=== PATIENT | male | born 1980 | race Caucasian/White ===

== ENCOUNTER 2017-10-29 08:00 | Outpatient (CLI) | payer BC | END 2017-10-29 23:59 | disposition home or self-care (01) | LOC: LAB.R 08:00 | PROVIDERS: ATTEND Nurse Practitioner Family | DX: F90.0 Attention-deficit hyperactivity disorder, predominantly inattentive type (principal) | CPT/HCPCS: 80307; 80324; 80354; 80362; 81599 ==

== ENCOUNTER 2018-09-02 13:11 | Outpatient (CLI) | payer BC ==
[2018-09-02 19:13] LABS: ALBUMIN 4.7 g/dL (3.2-5.5); ALBUMIN/GLOBULIN RATIO 1.4 (1.0-2.2); BILIRUBIN,TOTAL 0.9 mg/dL (0.2-1.0); CALCIUM 9.4 mg/dL (8.5-10.3); CREATININE 0.8 mg/dL (0.6-1.2)
[2018-09-02 19:54] LABS: HB2 TOTAL 16.5 g/dL; HEMOGLOBIN A1C 0.67 g/dL; HEMOGLOBIN A1C % 5.9 % (4.6-6.2)
== END 2018-09-02 13:12 | disposition home or self-care (01) ==
LOC: LAB.F 13:11
PROVIDERS: ATTEND Nurse Practitioner Family
DX: E78.5 Hyperlipidemia, unspecified (principal); E55.9 Vitamin D deficiency, unspecified; I10 Essential (primary) hypertension
CPT/HCPCS: 36415; 80053; 82306; 83036; 83718; 83721; 84478

== ENCOUNTER 2022-08-23 11:03 | Outpatient (CLI) | payer OTHER | END 2022-08-23 11:04 | disposition critical access hospital (66) | LOC: EMS 11:03 | DX: R10.11 Right upper quadrant pain (principal); R10.811 Right upper quadrant abdominal tenderness; R11.0 Nausea; R19.7 Diarrhea, unspecified | CPT/HCPCS: A0425; A0427 ==

== ENCOUNTER 2022-08-23 11:36 | Inpatient (IN) | payer BC, OTHER ==
[2022-08-23] MEDS ORDERED: MORPHINE 2 MG/ML CARPUJECT IVP STA (11:58)
[2022-08-23] MEDS ORDERED: SODIUM CHLORIDE 0.9% 1,000 ML IV STA ×2 (11:58→14:49)
[2022-08-23 12:23] LABS: BASOPHILS # (AUTO) 0.1 10^3/uL (0.0-0.1); BASOPHILS % (AUTO) 0.7 %; EOSINOPHILS # (AUTO) 0.1 10^3/uL (0.0-0.7); EOSINOPHILS % (AUTO) 0.7 %; HCT - HEMATOCRIT 49.8 % (42.0-52.0); HGB - HEMOGLOBIN 15.1 g/dL (14.0-18.0); LYMPHOCYTES # (AUTO) 1.5 10^3/uL (1.5-3.5); MEAN CORPUSCULAR HEMOGLOBIN 27.2 pg (27.0-31.0); MEAN CORPUSCULAR HGB CONC 30.3 g/dL (32.0-36.0); MEAN CORPUSCULAR VOLUME 89.7 fL (80.0-94.0); MEAN PLATELET VOLUME 10.4 fL (7.4-11.4); MONOCYTES # (AUTO) 0.8 10^3/uL (0.0-1.0); MONOCYTES % (AUTO) 5.5 %; NEUTROPHILS % (AUTO) 82.1 %; PLT - PLATELET COUNT 265 10^3/uL (130-450); RED BLOOD COUNT 5.55 10^6/uL (4.70-6.10); RED CELL DISTRIBUTION WIDTH 13.2 % (12.0-15.0); WHITE BLOOD COUNT 14.6 x10^3/uL (4.8-10.8)
--- NOTE | 2022-08-23 12:29 | ED Physician Documentation ---
PD HPI ABD PAIN - Stated complaint Stated Complaint: RUQ PX - Chief complaint Chief Complaint: Abd Pain - History obtained from History obtained from: Patient - Additional information Additional information: Patient is a 41-year-old male with no significant past medical history presenting for evaluation of right upper quadrant pain that has been worsening since last night. Pain feels like a sharp pressure. It does radiate to the lower abdomen. Nothing makes it better or worse. He does report having some worsening indigestion for the past 2 days which she does have a history of. He denies chest pain or difficulty breathing. He did have some dry heaving today.He initially presented to the walk-in clinic and was given IM Toradol.He also received 50 mcg of fentanyl from EMS.He denies prior history of abdominal surgeries or procedures. Review of Systems Constitutional: denies: Fever Nose: denies: Congestion Cardiac: denies: Chest pain / pressure Respiratory: denies: Dyspnea GI: reports: Abdominal Pain, Nausea. denies: Diarrhea : denies: Dysuria Musculoskeletal: denies: Back pain Neurologic: denies: Headache PD PAST MEDICAL HISTORY - Allergies Allergies/Adverse Reactions: Allergies Allergy/AdvReac Type Severity Reaction Status Date / Time Penicillins Allergy Unknown Verified 08/23/22 11:59 PD ED PE NORMAL - General General: Alert and oriented X 3, No acute distress, Well developed/nourished - HEENT HEENT: Atraumatic - Neck Neck: Supple, no meningeal sign - Cardiac Cardiac: RRR, No murmur - Respiratory Respiratory: No respiratory distress, Clear bilaterally - Abdomen Abdomen: Normal bowel sounds, Soft, Non distended, Other (epigastric, Right upper and lower quadrant tenderness to palpation) - Derm Derm: Warm and dry - Neuro Neuro: Normal speech Results - Vitals Vitals: Vital Signs - 24 hr 08/23/22 08/23/22 08/23/22 11:52 13:59 16:13 Temperature 36.7 C Heart Rate 89 88 75 Respiratory 16 19 18 Rate Blood Pressure 120/85 H 127/82 H 117/69 O2 Saturation 98 100 97 Oxygen O2 Source Room air - Labs Labs: Laboratory Tests 08/23/22 08/23/22 08/23/22 12:20 13:17 13:17 WBC 14.6 H RBC 5.55 Hgb 15.1 Hct 49.8 MCV 89.7 MCH 27.2 MCHC 30.3 L RDW 13.2 Plt Count 265 MPV 10.4 Neut # (Auto) 12.0 H Lymph # (Auto) 1.5 [place] # (Auto) 0.8 Eos # (Auto) 0.1 Baso # (Auto) 0.1 Absolute Nucleated RBC 0.00 Nucleated RBC % 0.0 Sodium 134 L Potassium 4.3 Chloride 97 L Carbon Dioxide 28 Anion Gap 9.0 BUN 13 Creatinine 0.8 Estimated GFR (MDRD) 108 Glucose 219 H Calcium 9.3 Total Bilirubin 1.0 AST 293 H ALT 457 H Alkaline Phosphatase 131 H Total Protein 7.8 Albumin 4.5 Globulin 3.3 Albumin/Globulin Ratio 1.4 Triglycerides 1156 H Cholesterol 285 H LDL Cholesterol Direct 75 LDL Cholesterol, Calc Not Reportable VLDL Cholesterol Not Reportable HDL Cholesterol 24 L LDL/HDL Ratio Not Reportable dLDL/HDL Ratio 3.1 Cholesterol/HDL Ratio 11.9 Lipase > 4800 H SARS-CoV-2 (PCR) 08/23/22 16:15 WBC RBC Hgb Hct MCV MCH MCHC RDW Plt Count MPV Neut # (Auto) Lymph # (Auto) [place] # (Auto) Eos # (Auto) Baso # (Auto) Absolute Nucleated RBC Nucleated RBC % Sodium Potassium Chloride Carbon Dioxide Anion Gap BUN Creatinine Estimated GFR (MDRD) Glucose Calcium Total Bilirubin AST ALT Alkaline Phosphatase Total Protein Albumin Globulin Albumin/Globulin Ratio Triglycerides Cholesterol LDL Cholesterol Direct LDL Cholesterol, Calc VLDL Cholesterol HDL Cholesterol LDL/HDL Ratio dLDL/HDL Ratio Cholesterol/HDL Ratio Lipase SARS-CoV-2 (PCR) NOT DETECTED PD Medical Decision Making - ED course ED course: Patient presenting for evaluation of right-sided abdominal pain. His vital signs appear stable. He denies alcohol use. His labs are concerning for elevated lipase and LFTs. His ultrasound does not show cholecystitis.CT also confirms diagnosis of pancreatitis. Patient is requiring IV pain medication and fluids. Discussed the case with the hospitalist will admit for further ma nagement. I did add a lipid panel. Patient states that he has not had anything to eat or drink today because he was feeling unwell. It was notable for elevated triglycerides which may be the reason for his pancreatitis today. 1720 - Discussed with the hospitalist, Dr. Brown, Graciously agrees to admit the patient for further management. Departure - Departure Disposition: 66 [facility] DC/Xfer Clinical Impression: Abnormal liver enzymes, Fatty liver Acute pancreatitis Qualifiers: Pancreatitis type: other Acute pancreatitis complication: no infection or necrosis Qualified Code(s): K85.80 - Other acute pancreatitis without necrosis or infection
--- NOTE | 2022-08-23 13:40 | Ultrasound Report ---
PROCEDURE: Abdomen Limited INDICATIONS: RUQ TECHNIQUE: Real-time focused scanning was performed of the abdomen, with image documentation. COMPARISON: None FINDINGS: The liver is diffusely echogenic, consistent with probable diffuse hepatic steatosis. The liver is mildly enlarged, measuring 20.3 cm. There is an incidental 6 mm gallbladder polyp. Gallbladder is otherwise unremarkable without stones o r wall thickening. No dilated ducts. Common bile duct measures 5.2 mm, common hepatic duct measures 2.8 mm. Visualized portions of the pancreas are unremarkable. No right hydronephrosis. Right kidney measures 12.6 cm. IMPRESSION: Findings most likely represent diffuse hepatic steatosis. No evidence of gallstone disease. Reviewed by: Rafi Mix MD on 08/23/2022 1:39 PM PST Approved by: Rafi Mix MD on 08/23/2022 1:39 PM PST Station ID: [id number]
[2022-08-23] MEDS ORDERED: ONDANSETRON 4 MG/2 ML VIAL IVP STA (13:47)
[2022-08-23 14:08] LABS: ALBUMIN 4.5 g/dL (3.2-5.5); ALBUMIN/GLOBULIN RATIO 1.4 (1.0-2.2); ALKALINE PHOSPHATASE 131 IU/L (42-121); ALT ALANINE AMINOTRANSFERASE 457 IU/L (10-60); AST ASPARTATE AMINOTRANSFERASE 293 IU/L (10-42); BUN - BLOOD UREA NITROGEN 13 mg/dL (6-20); CALCIUM 9.3 mg/dL (8.5-10.3); CARBON DIOXIDE - CO2 28 mmol/L (21-32); CHLORIDE 97 mmol/L (101-111); CREATININE 0.8 mg/dL (0.6-1.2); GFR - MDRD 108 (>89); GLUCOSE 219 mg/dL (70-100); LIPASE > 4800 U/L (22-51); POTASSIUM 4.3 mmol/L (3.5-5.0); SODIUM 134 mmol/L (135-145); TOTAL PROTEIN 7.8 g/dL (6.7-8.2)
[2022-08-23] MEDS ORDERED: iohexoL-300 100 ML VIAL ONE (14:19)
[2022-08-23] MEDS ORDERED: HYDROmorphone 1 MG/ML CARPUJECT IVP STA ×3 (14:49→20:59)
[2022-08-23 15:35] LABS: CHOL/HDL RATIO 11.9 (<5.0); CHOLESTEROL 285 mg/dL; HDL CHOLESTEROL 24 mg/dL; TRIGLYCERIDES 1156 mg/dL
[2022-08-23 15:57] LABS: LDL CHOLESTEROL,DIRECT 75 mg/dL; LDLD/HDL RATIO 3.1 (<3.6)
--- NOTE | 2022-08-23 16:01 | CT Report ---
PROCEDURE: ABDOMEN/PELVIS W INDICATIONS: R sided abd pain CONTRAST: 100ml OMnipaque 300 TECHNIQUE: After the administration of IV contrast, 5 mm thick sections acquired from the diaphragms to the symp hysis. 5 mm thick coronal and sagittal reformats were acquired. For radiation dose reduction, the f ollowing was used: automated exposure control, adjustment of mA and/or kV according to patient size. COMPARISON: Ultrasound of abdomen from the same day. FINDINGS: Image quality: Excellent. ABDOMEN: Lung bases: Lung bases are clear. Heart size is normal. Solid organs: There is hepatomegaly and moderate hepatic steatosis, no discrete hepatic lesion is see n. Gallbladder contains a tiny stone in its dependent portion. No gallbladder wall thickening or aguilar cholecystic fluid is seen. Spleen is normal in size and enhancement. Biliary system is non dilated. Pancreas is enlarged in size with extensive peripancreatic fat stranding. No discrete pancreatic mass is noted. No discrete peripancreatic fluid collection is seen. No adrenal nodules. Kidneys demonstrate normal size and enhancement, without hydronephrosis. Peritoneum and bowel: Bowel loops demonstrate normal wall thickness and caliber. No free fluid or a ir. Appendix is visualized and is within normal limits. No abscess collection. Mild sigmoid diverticu losis is seen without CT evidence of acute diverticulitis. Nodes and vessels: No retroperitoneal or mesenteric adenopathy by size criteria. Aorta and inferior vena cava are normal in size. Miscellaneous: No ventral hernias. PELVIS: Genitourinary: Bladder wall thickness is normal. Miscellaneous: No inguinal hernias or adenopathy. Bones: No suspicious bony lesions. No vertebral body compression fractures. Mild degenerative disc disease at L3-4, L4-5 and L5-S1 levels are seen. IMPRESSION: 1. Finding is consistent with acute pancreatitis. No peripancreatic fluid collection. 2. Cholelithiasis without CT evidence of acute cholecystitis. No biliary ductal dilatation. 3. Hepatomegaly and hepatic steatosis. No discrete hepatic lesion. 4. Normal appendix. No bowel obstruction or abnormal bowel wall thickening. No free fluid of free air . Reviewed by: Pancho Zafar MD on 08/23/2022 3:59 PM PST Approved by: Pancho Zafar MD on 08/23/2022 3:59 PM PST Station ID: [id number]
[2022-08-23] MEDS ORDERED: iohexoL-300 100 ML VIAL IVP ONE (16:27)
[2022-08-23] MEDS ORDERED: MORPHINE 2 MG/ML CARPUJECT IVP PRN (17:45)
[2022-08-23] MEDS ORDERED: ONDANSETRON ODT 4 MG TABLET TL PRN (17:45)
--- NOTE | 2022-08-23 18:01 | HISTORY & PHYSICAL EXAMINATION ---
Chief Complaint - Chief Complaint Chief Complaint: abd pain History of Present Illness - Admitted From Admitted From:: home - History Obtained From Records Reviewed: [facility] History obtained from: patient and Dr. Sesay Exam Limitations: none - History of Present Illness HPI Comment/Other: He started having RUQ pain a couple of days ago and thought it was indigestion. Pain initially was epigastric, and then it started going into the right upper quadrant. It had started in the morning after eating a [employer] breakfast. He thought at first it was just a touch of indigestion. A friend was visiting from [facility] and they were being indiscrete by eating "bad food". Later on that evening, that same friend made a meal of a wagyu steak that was probably the fattiest thing he had ever eaten. Also accompanied by fois grois. The pain really intensified after that meal and he was miserable to the point that he felt like he was going to . He said this was the worst pain he has ever had in his life. Non radiating. Located in the epigastrium and right upper quadrant. It did not radiate to the back. After a while the feeling that he was going to explode slowly abated, but he then began feeling left upper quadrant discomfort. And now he feels discomfort in the left mid abdomen. No fever, no chills. No hx of alcohol abuse, no hx of cholesterol problems, no hx of galbladder problems. He was able to find some lab work for me from 2018. At that point his triglycerides were in the low 200s. Many years ago he had a girlfriend that was a recovering alcoholic. And in order to support her he decided not to drink anymore. He said he has not had a drink in over 6 years. He was so measurable with us that he got himself to the walk-in clinic in [place]. From there they called an ambulance and brought him to our emergency room. His temp was 36.7, HR 89, 120/85, resp 16, with 98% room air sats. Exam was antoine gn except for epigastric, RUQ pain to palpation w nml bowel sounds. Labs show AST 293, ALT 457, alk phos 131. TG are 1156, chold 285, lipase >4800. Glucose is 219 and he has no hx of DM. Ultrasound showed diffuse hepatic steatosis. No evidence of gallstone disease. Abdomen pelvis CT had clear lung bases. Hepatomegaly, moderate hepatic steatosis, and gallbladder had a tiny stone in its dependent portion. No gallbladder wall thickening or pericholecystic fluid seen. Spleen was normal. Biliary system was not dilated. Pancreas was large in size with extensive peripancreatic fat stranding. No discrete pancreatic mass noted. No peripancreatic fluid collection noted. The case was discussed with emergency room provider. We went over the differential diagnosis of what causes pancreatitis. We have already gone over the fact that he has no history of alcohol abuse, no history of gallstones. He does appear to have hyperlipidemia. ER provider is asking the patient be admitted for pancreatitis. History - Past Medical History Cardiovascular: reports: None Respiratory: reports: None Neuro: reports: None Endocrine/Autoimmune: reports: None GI: reports: None : reports: None HEENT: reports: Chronic vision loss (Wears glasses. Over the last couple of years vision has changed dramatically) Psych: reports: None Musculoskeletal: reports: None Derm: reports: None - Family & Social History Family History Comment/Other: Mom is alive. Still living in [place]. Has a history of diabetes. Dad is alive, lives in [facility]. Healthy. He has multiple half siblings between mom and dad. He has 1 full sister, but 8/2 siblings. No history of diabetes, cancer, heart attack, pancreatitis. 1 child is healthy Living arrangement: At home Living Situation: Alone Social History Notes: Born and raised in [place]. Then lived in [facility] for a while. In his professional life he has lived in [place], [place], and most recently [place]. 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 He does not smoke. Never did. Has not drank in 6 years to support his ex-girlfriend who still his best friend. Prior to that has no history of alcohol abuse. No history of recreational substance abuse. - Substance History Use: Uses substance without health or social issues: NONE Meds/Allgy - Allergies Allergies/Adverse Reactions: Allergies Allergy/AdvReac Type Severity Reaction Status Date / Time Penicillins Allergy Unknown Verified 08/23/22 11:59 Review of Systems - Constitutional Constitutional: denies: Fatigue, Fever, Chills, Malaise, Weakness, Poor appetite - Eyes Eyes: reports: Blurred vision, Vision loss. denies: Pain, Irritation, Amaurosis - Ears, Nose & Throat Ears, Nose & Throat: denies: Ear pain, Hearing loss, Hearing aids, Tinnitus, Vertigo, Nasal pain, Nasal discharge, Sore throat, Hoarseness - Cardiovascular Cariovascular: denies: Irregular heart rate, Palpitations, Chest pain, Edema, Exertional dyspnea, Decr. exercise tolerance - Respiratory Respiratory: denies: Cough, Sputum production, Wheezing, Snoring - Gastrointestinal Gastrointestinal: reports: Abdominal pain, Abdominal distention, Nausea, Reflux/heartburn, Bloating, Other (All of these been over the last 2 days. This pain started on Sunday. Today is Sunday.) - Genitourinary Genitourinary: denies: Dysuria, Frequency, Urgency, Hematuria, Incontinence - Musculoskeletal Musculoskeletal: denies: Muscle pain, Back pain, Muscle aches, Stiffness - Integumentary Integumentary: denies: Rash, Pruritis, Lesions, Dryness - Neurological Neurological: denies: General weakness, Focal weakness, Headache, Dizziness Prior Level of Functionality: Completely normal with activities of daily living. Drives a car. Pays bills. Completely self-sufficient. No use of durable medical equipment. Exam - Vital Signs Reviewed Vital Signs: Yes Vital Signs: Vital Signs x48h Temp Pulse Resp BP Pulse Ox 08/23/22 16:13 75 18 117/69 97 08/23/22 13:59 88 19 127/82 H 100 08/23/22 11:52 36.7 C 89 16 120/85 H 98 - Physical Exam General Appearance: positive: Alert, Mild distress, Other (He is 5 foot 11 inches tall, 117.9 kg) Eyes Bilateral: positive: PERRL, EOMI, No scleral icterus ENT: positive: No signs of dehydration Neck: positive: No JVD. negative: Stiff neck Respiratory: positive: No respiratory distress. negative: Wheezes, Rales, Rhonchi Cardiovascular: positive: Regular rate & rhythm Peripheral Pulses: positive: 1+ Abdomen: positive: Nml bowel sounds, Other (Slightly distended and bloated, tenderness that is mild in the epigastrium and right upper quadrant. Discomfort in the left mid abdomen and between the umbilicus and epigastrium. No rebound or guarding.) Skin: positive: Warm, Dry Extremities: positive: Full ROM, No pedal edema Neurologic/Psychiatric: positive: Oriented x3, CN's nml (2-12), Motor nml Conclusion/Plan - Problem List (1) Acute pancreatitis Conclusion/Plan: My suspicion is this gentleman has either hypertriglyceridemia as a cause of his pancreatitis or he passed a stone and had temporary common bile duct distention. There is no objective finding of that in that the biliary system is not dilated on CT or ultrasound. Yet he has history of severe pain after eating followed by an intense feeling of going to explode which slowly abated over time leads me to think about biliary colic. However, He appears to have chronic fatty liver. There is one gallstone but it is small, and in the gallbladder. H is liver enzymes are elevated And to his knowledge, no previous lab work showed elevation of liver enzymes. He has no history of alcohol abuse. Plan: Inpatient status Calculate [facility] criteria in 48 hours Supportive care with IV fluids, antiemetics, IV opioids Recheck fasting lipid panel for his triglycerides tomorrow Qualifiers: Pancreatitis type: other Acute pancreatitis complication: no infection or necrosis Qualified Code(s): K85.80 - Other acute pancreatitis without necrosis or infection (2) Hypertriglyceridemia Conclusion/Plan: Most likely familial, but he is morbidly obese at 5 foot 11 inches tall 117.9 kg. He may have a problem with his diet. Plan: N.p.o. except for ice chips Lipid panel tomorrow morning Consider [employer] once his lipid panel comes back (3) Abnormal liver enzymes Conclusion/Plan: Most likely due to fatty liver. Ultrasound shows no tumor. Differential diagnosis for elevated liver enzymes is extensive including acute hepatitis, Leo's disease, hemochromatosis, etc. Plan: For complete work-up of elevated liver enzymes, will complete serology work-up. Ultrasound already done. - Lab Results Lab results reviewed: Yes Fish Bones: 08/23/22 12:20 08/23/22 13:17 - Diagnostic Imaging Results Diagnostic Imaging Results: positive: Final report reviewed - EKG Results EKG Interpreted Independently: No Core Measures - Anticipated LOS I expect patient to be DC'd or transferred within 96 hours.: Yes - DVT/VTE - Prophylaxis VTE/DVT Prophylaxis med ordered at admit?: Yes
[2022-08-23] MEDS: ONDANSETRON 4 MG/2 ML VIAL IVP PRN (21:13)
[2022-08-23] MEDS: SODIUM CHLORIDE 0.9% 1,000 ML IV SCH (23:14)
[2022-08-24] MEDS: SODIUM CHLORIDE FLUSH 0.9% 10 ML SYRINGE IVP SCH ×3 (00:47→16:55)
[2022-08-24 05:16] LABS: BASOPHILS % (AUTO) 0.3 %; EOSINOPHILS % (AUTO) 0.2 %; HCT - HEMATOCRIT 44.2 % (42.0-52.0); HGB - HEMOGLOBIN 13.7 g/dL (14.0-18.0); LYMPHOCYTES # (AUTO) 1.6 10^3/uL (1.5-3.5); MEAN CORPUSCULAR HEMOGLOBIN 27.3 pg (27.0-31.0); MEAN PLATELET VOLUME 10.3 fL (7.4-11.4); MONOCYTES # (AUTO) 0.7 10^3/uL (0.0-1.0); MONOCYTES % (AUTO) 5.6 %; NEUTROPHILS # (AUTO) 9.8 10^3/uL (1.5-6.6); NEUTROPHILS % (AUTO) 80.2 %; PLT - PLATELET COUNT 254 10^3/uL (130-450); RED BLOOD COUNT 5.02 10^6/uL (4.70-6.10); RED CELL DISTRIBUTION WIDTH 13.5 % (12.0-15.0); WHITE BLOOD COUNT 12.3 x10^3/uL (4.8-10.8)
[2022-08-24 05:35] LABS: CHOL/HDL RATIO 9.3 (<5.0); CHOLESTEROL 176 mg/dL; HDL CHOLESTEROL 19 mg/dL; TRIGLYCERIDES 401 mg/dL
[2022-08-24 05:44] LABS: ALBUMIN 3.5 g/dL (3.2-5.5); ALBUMIN/GLOBULIN RATIO 1.1 (1.0-2.2); BILIRUBIN,TOTAL 0.9 mg/dL (0.2-1.0); CALCIUM 8.2 mg/dL (8.5-10.3); CREATININE 0.8 mg/dL (0.6-1.2); POTASSIUM 3.6 mmol/L (3.5-5.0); TOTAL PROTEIN 6.6 g/dL (6.7-8.2)
[2022-08-24 05:54] LABS: LDL CHOLESTEROL,DIRECT 58 mg/dL; LDLD/HDL RATIO 3.1 (<3.6)
[2022-08-24] MEDS: HYDROmorphone 0.5 MG/0.5 ML SYRINGE IVP PRN ×5 (06:33→22:37)
[2022-08-24] MEDS: ONDANSETRON 4 MG/2 ML VIAL IVP PRN (06:36)
[2022-08-24] MEDS: SODIUM CHLORIDE 0.9% 1,000 ML IV SCH ×2 (06:42→17:32)
[2022-08-24] MEDS ORDERED: GADOBUTROL 15 MMOL/15 ML VIAL ONE (10:35)
[2022-08-24] MEDS ORDERED: GADOBUTROL 15 MMOL/15 ML VIAL IVP ONE (12:43)
--- NOTE | 2022-08-24 13:47 | MRI Report ---
PROCEDURE: MRCP W/WO INDICATIONS: pancreatitis. CONTRAST: 11.7 mL Gadavist TECHNIQUE: Coronal ultra fast SE through the abdomen, axial 2-D spoiled GE in- and [id number], and breath-hold T2 FSE with fat saturation through the biliary system and pancreas. Oblique coronal and axial thin- slice ultra fast SE, radial thick-slab ultra fast SE centered on the extrahepatic bile ducts. COMPARISON: Right upper quadrant ultrasound and CT abdomen pelvis 08/23/2022. FINDINGS: Image quality: Adequate. Pancreas and biliary system: Intra- and extra-hepatic biliary ducts are non dilated. No evidence of choledocholithiasis. Findings of acute pancreatitis redemonstrated. Peripancreatic fluid appears increased compared to the recent CT. No organized/drainable peripancreatic collection visualized. No dilation of the main panc reatic duct. Gallbladder contains a tiny stone. Other solid organs: Liver and spleen are normal in size. There is diffuse signal loss on out-of-phas e images compatible with hepatic steatosis. No adrenal nodules. Both kidneys are normal in size, wi thout hydronephrosis. Nodes and vessels: No retroperitoneal or mesenteric adenopathy by size criteria. Aorta and inferior vena cava are normal in size. Bowel: Visualized large and small bowel is non-dilated. Lung bases: Trace bilateral pleural effusions. IMPRESSION: 1. No biliary ductal dilation or evidence of choledocholithiasis. 2. Findings of acute pancreatitis redemonstrated. Allowing for differences in modality, peripancreati c/abdominal fluid appears increased since before. No organized/drainable peripancreatic collection id entified at this time. 3. Hepatic steatosis. Reviewed by: Arthur Tesfaye MD on 08/24/2022 1:45 PM PST Approved by: Arthur Tesfaye MD on 08/24/2022 1:45 PM PST Station ID: [id number]
--- NOTE | 2022-08-24 13:58 | PROVIDER PROGRESS NOTE ---
Subjective - Prog Note Date Prog Note Date: 08/24/22 Prog Note Time: 14:01 - Subjective Subjective: Please see assessment and plan below. Another episode of colicky epigastric pain this morning. Otherwise he denies fever, chills, cough. Chest pain. No leg pain Current Medications - Current Medications Current Medications: Active Medications Hydromorphone HCl (Hydromorphone 0.5 Mg/0.5 Ml Syringe) 0.5 - 1 mg IVP Q3H PRN PRN Reason: PAIN Last Admin: 08/24/22 13:31 Dose: 0.5 mg Sodium Chloride (Normal Saline 0.9%) 1,000 mls @ 100 mls/hr IV .Q10H EVONNE Last Admin: 08/24/22 06:42 Dose: 100 mls/hr Ondansetron HCl (Ondansetron Odt 4 Mg Tablet) 4 mg TL Q6HR PRN PRN Reason: Nausea / Vomiting Ondansetron HCl (Ondansetron 4 Mg/2 Ml Vial) 4 mg IVP Q6HR PRN PRN Reason: Nausea / Vomiting Last Admin: 08/24/22 06:36 Dose: 4 mg Sodium Chloride (Sodium Chloride Flush 0.9% 10 Ml Syringe) 10 ml IVP PRN PRN PRN Reason: NEEDED PER PROVIDER ORDERS Sodium Chloride (Sodium Chloride Flush 0.9% 10 Ml Syringe) 10 ml IVP 0100,0900,1700 [facility] Last Admin: 08/24/22 08:53 Dose: 10 ml Zolpidem Tartrate (Zolpidem 5 Mg Tablet) 5 mg PO QPM PRN PRN Reason: Insomnia Objective - Vital Signs/Intake & Output Reviewed Vital Signs: Yes Vital Signs: Vital Signs x48h Temp Pulse Pulse Resp BP BP Pulse Ox 08/24/22 08:00 36.4 C L 97 18 110/68 95 08/24/22 06:44 104 H 127/77 97 Intake & Output: Intake & Output 08/21/22 08/22/22 08/23/22 08/24/22 23:59 23:59 23:59 23:59 Intake Total 1999 026.667 Balance 1999 746.667 - Objective General Appearance: positive: Alert, Other (One of his good friends is the room with him this morning) Eyes Bilateral: positive: PERRL, EOMI ENT: positive: No signs of dehydration Neck: positive: No JVD. negative: Stiff neck Respiratory: positive: No respiratory distress. negative: Wheezes, Rales, Rhonchi Cardiovascular: positive: Regular rate & rhythm Abdomen: positive: No organomegaly, Nml bowel sounds, Tenderness (Mild to moderate in the epigastrium. No rebound or guarding) Skin: positive: Warm, Dry Extremities: positive: Full ROM, No pedal edema Neurologic/Psychiatric: positive: Oriented x3, CN's nml (2-12), Motor nml - Lab Results Fish Bones: 08/24/22 05:08 08/24/22 05:08 Other Labs: Lab Results x24hrs 08/24/22 08/24/22 08/24/22 Range/Units 05:08 05:08 05:08 WBC (4.8-10.8) x10^3/uL RBC (4.70-6.10) 10^6/uL Hgb (14.0-18.0) g/dL Hct (42.0-52.0) % MCV (80.0-94.0) fL MCH (27.0-31.0) pg MCHC (32.0-36.0) g/dL RDW (12.0-15.0) % Plt Count (130-450) 10^3/uL MPV (7.4-11.4) fL Neut # (Auto) (1.5-6.6) 10^3/uL Lymph # (Auto) (1.5-3.5) 10^3/uL [place] # (Auto) (0.0-1.0) 10^3/uL Eos # (Auto) (0.0-0.7) 10^3/uL Baso # (Auto) (0.0-0.1) 10^3/uL Absolute Nucleated RBC x10^3/uL Nucleated RBC % /100WBC Sodium 139 (135-145) mmol/L Potassium 3.6 (3.5-5.0) mmol/L Chloride 101 (101-111) mmol/L Carbon Dioxide 28 (21-32) mmol/L Anion Gap 10.0 (6-13) BUN 12 (6-20) mg/dL Creatinine 0.8 (0.6-1.2) mg/dL Estimated GFR (MDRD) 108 (>89) Glucose 145 H (70-100) mg/dL Calcium 8.2 L (8.5-10.3) mg/dL Ferritin 172.6 (23.9-336.2) ng/mL Total Bilirubin 0.9 (0.2-1.0) mg/dL AST 65 H (10-42) IU/L ALT 269 H (10-60) IU/L Alkaline Phosphatase 103 (42-121) IU/L Total Protein 6.6 L (6.7-8.2) g/dL Albumin 3.5 (3.2-5.5) g/dL Globulin 3.1 (2.1-4.2) g/dL Albumin/Globulin Ratio 1.1 (1.0-2.2) Triglycerides 401 H ( - 149) mg/dL Cholesterol 176 ( - 199) mg/dL LDL Cholesterol Direct 58 ( - 129) mg/dL LDL Cholesterol, Calc Not Reportable VLDL Cholesterol Not Reportable HDL Cholesterol 19 L (60 - ) mg/dL LDL/HDL Ratio Not Reportable dLDL/HDL Ratio 3.1 (<3.6) Cholesterol/HDL Ratio 9.3 (<5.0) Lipase 648 H (22-51) U/L SARS-CoV-2 (PCR) 08/24/22 08/23/22 08/23/22 Range/Units 05:08 16:15 13:17 WBC 12.3 H (4.8-10.8) x10^3/uL RBC 5.02 (4.70-6.10) 10^6/uL Hgb 13.7 L (14.0-18.0) g/dL Hct 44.2 (42.0-52.0) % MCV 88.0 (80.0-94.0) fL MCH 27.3 (27.0-31.0) pg MCHC 31.0 L (32.0-36.0) g/dL RDW 13.5 (12.0-15.0) % Plt Count 254 (130-450) 10^3/uL MPV 10.3 (7.4-11.4) fL Neut # (Auto) 9.8 H (1.5-6.6) 10^3/uL Lymph # (Auto) 1.6 (1.5-3.5) 10^3/uL [place] # (Auto) 0.7 (0.0-1.0) 10^3/uL Eos # (Auto) 0.0 (0.0-0.7) 10^3/uL Baso # (Auto) 0.0 (0.0-0.1) 10^3/uL Absolute Nucleated RBC 0.00 x10^3/uL Nucleated RBC % 0.0 /100WBC Sodium (135-145) mmol/L Potassium (3.5-5.0) mmol/L Chloride (101-111) mmol/L Carbon Dioxide (21-32) mmol/L Anion Gap (6-13) BUN (6-20) mg/dL Creatinine (0.6-1.2) mg/dL Estimated GFR (MDRD) (>89) Glucose (70-100) mg/dL Calcium (8.5-10.3) mg/dL Ferritin (23.9-336.2) ng/mL Total Bilirubin (0.2-1.0) mg/dL AST (10-42) IU/L ALT (10-60) IU/L Alkaline Phosphatase (42-121) IU/L Total Protein (6.7-8.2) g/dL Albumin (3.2-5.5) g/dL Globulin (2.1-4.2) g/dL Albumin/Globulin Ratio (1.0-2.2) Triglycerides 1156 H ( - 149) mg/dL Cholesterol 285 H ( - 199) mg/dL LDL Cholesterol Direct 75 ( - 129) mg/dL LDL Cholesterol, Calc Not Reportable VLDL Cholesterol Not Reportable HDL Cholesterol 24 L (60 - ) mg/dL LDL/HDL Ratio Not Reportable dLDL/HDL Ratio 3.1 (<3.6) Cholesterol/HDL Ratio 11.9 (<5.0) Lipase (22-51) U/L SARS-CoV-2 (PCR) NOT DETECTED 08/23/22 Range/Units 13:17 WBC (4.8-10.8) x10^3/uL RBC (4.70-6.10) 10^6/uL Hgb (14.0-18.0) g/dL Hct (42.0-52.0) % MCV (80.0-94.0) fL MCH (27.0-31.0) pg MCHC (32.0-36.0) g/dL RDW (12.0-15.0) % Plt Count (130-450) 10^3/uL MPV (7.4-11.4) fL Neut # (Auto) (1.5-6.6) 10^3/uL Lymph # (Auto) (1.5-3.5) 10^3/uL [place] # (Auto) (0.0-1.0) 10^3/uL Eos # (Auto) (0.0-0.7) 10^3/uL Baso # (Auto) (0.0-0.1) 10^3/uL Absolute Nucleated RBC x10^3/uL Nucleated RBC % /100WBC Sodium 134 L (135-145) mmol/L Potassium 4.3 (3.5-5.0) mmol/L Chloride 97 L (101-111) mmol/L Carbon Dioxide 28 (21-32) mmol/L Anion Gap 9.0 (6-13) BUN 13 (6-20) mg/dL Creatinine 0.8 (0.6-1.2) mg/dL Estimated GFR (MDRD) 108 (>89) Glucose 219 H (70-100) mg/dL Calcium 9.3 (8.5-10.3) mg/dL Ferritin (23.9-336.2) ng/mL Total Bilirubin 1.0 (0.2-1.0) mg/dL AST 293 H (10-42) IU/L ALT 457 H (10-60) IU/L Alkaline Phosphatase 131 H (42-121) IU/L Total Protein 7.8 (6.7-8.2) g/dL Albumin 4.5 (3.2-5.5) g/dL Globulin 3.3 (2.1-4.2) g/dL Albumin/Globulin Ratio 1.4 (1.0-2.2) Triglycerides ( - 149) mg/dL Cholesterol ( - 199) mg/dL LDL Cholesterol Direct ( - 129) mg/dL LDL Cholesterol, Calc VLDL Cholesterol HDL Cholesterol (60 - ) mg/dL LDL/HDL Ratio dLDL/HDL Ratio (<3.6) Cholesterol/HDL Ratio (<5.0) Lipase > 4800 H (22-51) U/L SARS-CoV-2 (PCR) ABX Reporting Has patient been on IV antibiotics over the past 48 hours?: No Assessment/Plan - Problem List (1) Acute pancreatitis Impression: Conclusion/Plan: My suspicion is this gentleman has either hypertriglyceridemia as a cause of his pancreatitis or he passed a stone and had temporary common bile duct distention. There is no objective finding of that in that the biliary system is not dilated on CT or ultrasound. Yet he has history of severe pain after eating followed by an intense feeling of going to explode which slowly abated over time leads me to think about biliary colic. However, He appears to have chronic fatty liver. There is one gallstone but it is small, and in the gallbladder. His liver enzymes are elevated And to his knowledge, no previous lab work showed elevation of liver enzymes. He has no history of alcohol abuse. Overnight, he was very cold in the emergency room because he could not have a bed on the inpatient side yet. By the time he came back over here to [facility] he had 1 more episode of biliary type colic. Epigastric, horrifically painful, and now gradually getting better over the last 3 hours. No nausea. No emesis. No fever.Yesterday triglycerides were 1156. This morning he is 401. Cholesterol was 285, now 176. LDL 75, now 58. HDL 24, now 19. Lipase was greater than 4800. This morning it is 648. His white cell count has come down from 14.6-12.3. Liver enzymes are much improved. Triglycerides are much improved. Plan: Continue supportive care with IV fluids, antiemetics, IV opioids. Keep NPO MRCP ordered and pending. Qualifiers: Pancreatitis type: other Acute pancreatitis complication: no infection or necrosis Qualified Code(s): K85.80 - Other acute pancreatitis without necrosis or infection (2) Hypertriglyceridemia Conclusion/Plan: Most likely familial, but he is morbidly obese at 5 foot 11 inches tall 117.9 kg. He may have a problem with his diet. With fasting, triglycerides have come down tremendously on their own. Plan: N.p.o. except for ice chips No Tricor for today. Will reassess after this acute episode of pancreatitis. He may need is in the outpatient setting. And at that time decision to be placed on Tricor or statin. LDL is good. HDL is little too low (3) Abnormal liver enzymes Conclusion/Plan: Most likely due to fatty liver. Ultrasound shows no tumor. Differential diagnosis for elevated liver enzymes is extensive including acute hepatitis, Leo's disease, hemochromatosis, etc. The convenience liver panel set which looks at all of these diseases has been drawn this morning. Results are pending. Plan: Review labs once available (4) Hyperglycemia He does not have a history of diabetes but it is in his family. Yesterday afternoon his glucose was 219 in the ER. This morning his fasting glucose is 145. Plan: Check A1c
--- NOTE | 2022-08-24 15:03 | PHARMACY PROGRESS NOTE ---
- Best Possible Medication History Admit Date and Time: 08/23/22 5617 Processed by: Pharmacy Medication History completed: Yes Patient Interview: Completed Secondary Source(s): Physician records, Insurance records Patient reports he has a prescription for Adderall but has not taken this for 3 months or so. As the person ultimately responsible for medication therapy, providers are able to order a medication from an existing home medication list in [facility] via the "Reconcile Routine" prior to Confirmation of that medication by direct support staff member. Such practice is discouraged except when the physician, in their clinical judgment, deems that a medical need exists for a medication without regard to previous use.
[2022-08-24 20:07] LABS: ESTIMATED AVERAGE GLUCOSE 140 mg/dL (70-100); HEMOGLOBIN A1c% 6.5 % (4.27-6.07)
[2022-08-24] MEDS: SODIUM CHLORIDE FLUSH 0.9% 10 ML SYRINGE IVP PRN (22:38)
[2022-08-25] MEDS: ZOLPIDEM 5 MG TABLET PO PRN (00:26)
[2022-08-25] MEDS: SODIUM CHLORIDE FLUSH 0.9% 10 ML SYRINGE IVP SCH ×4 (00:28→23:43)
[2022-08-25 03:09] LABS: HBsAG SCREEN Negative (Negative); HCV AB <0.1 s/co ratio (0.0-0.9); HEPATITIS B CORE IGM AB Negative (Negative)
[2022-08-25] MEDS: SODIUM CHLORIDE 0.9% 1,000 ML IV SCH ×2 (03:18→15:16)
[2022-08-25] MEDS: HYDROmorphone 0.5 MG/0.5 ML SYRINGE IVP PRN ×5 (03:53→23:42)
[2022-08-25 05:17] LABS: BASOPHILS # (AUTO) 0.1 10^3/uL (0.0-0.1); BASOPHILS % (AUTO) 0.4 %; EOSINOPHILS # (AUTO) 0.1 10^3/uL (0.0-0.7); EOSINOPHILS % (AUTO) 0.6 %; HCT - HEMATOCRIT 38.6 % (42.0-52.0); HGB - HEMOGLOBIN 12.2 g/dL (14.0-18.0); LYMPHOCYTES # (AUTO) 1.5 10^3/uL (1.5-3.5); LYMPHOCYTES % (AUTO) 10.7 %; MEAN CORPUSCULAR HEMOGLOBIN 27.5 pg (27.0-31.0); MEAN CORPUSCULAR HGB CONC 31.6 g/dL (32.0-36.0); MEAN CORPUSCULAR VOLUME 86.9 fL (80.0-94.0); MEAN PLATELET VOLUME 10.2 fL (7.4-11.4); MONOCYTES # (AUTO) 0.9 10^3/uL (0.0-1.0); MONOCYTES % (AUTO) 6.5 %; NEUTROPHILS # (AUTO) 11.2 10^3/uL (1.5-6.6); NEUTROPHILS % (AUTO) 80.9 %; PLT - PLATELET COUNT 232 10^3/uL (130-450); RED BLOOD COUNT 4.44 10^6/uL (4.70-6.10); RED CELL DISTRIBUTION WIDTH 13.4 % (12.0-15.0); WHITE BLOOD COUNT 13.8 x10^3/uL (4.8-10.8)
[2022-08-25 05:32] LABS: ALBUMIN 3.3 g/dL (3.2-5.5); BILIRUBIN,TOTAL 1.4 mg/dL (0.2-1.0); CALCIUM 8.2 mg/dL (8.5-10.3); CREATININE 0.7 mg/dL (0.6-1.2); POTASSIUM 3.4 mmol/L (3.5-5.0); TOTAL PROTEIN 6.5 g/dL (6.7-8.2)
[2022-08-25] MEDS: POTASSIUM CHLOR 10 MEQ/100 ML 10 MEQ/100 ML BAG IV SCH ×4 (08:12→13:34)
--- NOTE | 2022-08-25 08:50 | CT Report ---
PROCEDURE: ABDOMEN/PELVIS WO INDICATIONS: criteria of sepsis in pancreatitis TECHNIQUE: Noncontrast 5 mm thick sections acquired from the diaphragms to the symphysis. 5 mm coronal and sagi ttal reformats were then performed. For radiation dose reduction, the following was used: automated exposure control, adjustment of mA and/or kV according to patient size. COMPARISON: CT abdomen and pelvis with, 08/23/1022. MRCP, 08/24/2022. FINDINGS: Image quality: Excellent. ABDOMEN: Lung bases: Bibasilar opacities may be consolidation or atelectasis. Trace bilateral pleural effusion s are present. Heart size is normal. Small hiatal hernia. Solid organs: The pancreas is edematous with abundant stranding and fluid collection consistent with acute pancreatitis. Peripancreatic stranding is minimally increased since the last exam. No pancreat ic duct dilation. No pancreatic calcification or pseudocysts. Liver is mildly enlarged. Moderate hepatic steatosis. Gallbladder contains small gallstones. No adre nal nodules. Kidneys are normal in size, without hydronephrosis or nephrolithiasis. Peritoneum and bowel: Unenhanced bowel loops demonstrate normal wall thickness and caliber. There ar e scattered colonic diverticula. No acute diverticulitis. There is a small amount of free peritoneal fluid in the lesser sac, paracolic gutters and pelvis. No free air. Nodes and vessels: No retroperitoneal or mesenteric adenopathy by size criteria. Aorta and inferior vena cava are normal in caliber. Miscellaneous: No ventral hernias. PELVIS: Genitourinary: Bladder wall thickness is normal. Miscellaneous: No inguinal hernias or adenopathy. Bones: No suspicious bony lesions. No vertebral body compression fractures. IMPRESSION: 1. Acute pancreatitis. No pancreatic duct dilation or pancreatic pseudocysts. 2. Small pleural effusions bilaterally with bibasilar consolidation or atelectasis. 3. A small amount of ascites. 4. Cholelithiasis. 5. Hepatomegaly and hepatic steatosis. 6. Diverticulosis without diverticulitis. Reviewed by: Nuno Jackson MD on 08/25/2022 8:48 AM PST Approved by: Nuno Jackson MD on 08/25/2022 8:48 AM PST Station ID: [id number]
--- NOTE | 2022-08-25 10:45 | PROVIDER PROGRESS NOTE ---
Subjective - Prog Note Date Prog Note Date: 08/25/22 Prog Note Time: 10:37 - Subjective Subjective: He continues to have intermittent abdominal pain. Sometimes it is really severe and it frightens him because he thinks things may be getting worse. The pain has changed location. Whereas it used to be epigastric and right underneath his xiphoid process, and is now generalized around the umbilicus and in the mid abdomen. He is getting tachycardic with this. 104, sometimes as high as 120. No chest pain, no palpitations. He maintains O2 sats at 93 to 97% on room air. Temperature crept up to 37.9 but no true temp. There are no chills. He does not have any chest discomfort at all. I started giving him popsicles last night. He was just trying to have something in his mouth. He is tolerated that well. Current Medications - Current Medications Current Medications: Active Medications Hydromorphone HCl (Hydromorphone 0.5 Mg/0.5 Ml Syringe) 0.5 - 1 mg IVP Q3H PRN PRN Reason: PAIN Last Admin: 08/25/22 11:28 Dose: 1 mg Potassium Chloride (Potassium Chloride) 10 meq in 100 mls @ 100 mls/hr IV Q1H [facility] Stop: 08/25/22 11:59 Last Admin: 08/25/22 11:28 Dose: 80 mls/hr Sodium Chloride (Normal Saline 0.9%) 1,000 mls @ 100 mls/hr IV .Q10H EVONNE Ondansetron HCl (Ondansetron Odt 4 Mg Tablet) 4 mg TL Q6HR PRN PRN Reason: Nausea / Vomiting Ondansetron HCl (Ondansetron 4 Mg/2 Ml Vial) 4 mg IVP Q6HR PRN PRN Reason: Nausea / Vomiting Last Admin: 08/24/22 06:36 Dose: 4 mg Sodium Chloride (Sodium Chloride Flush 0.9% 10 Ml Syringe) 10 ml IVP PRN PRN PRN Reason: NEEDED PER PROVIDER ORDERS Last Admin: 08/24/22 22:38 Dose: 10 ml Sodium Chloride (Sodium Chloride Flush 0.9% 10 Ml Syringe) 10 ml IVP 0100,0900,1700 [facility] Last Admin: 08/25/22 09:10 Dose: 10 ml Zolpidem Tartrate (Zolpidem 5 Mg Tablet) 5 mg PO QPM PRN PRN Reason: Insomnia Last Admin: 08/25/22 00:26 Dose: 5 mg No Known Home Medications 08/24/22 Objective - Vital Signs/Intake & Output Reviewed Vital Signs: Yes Vital Signs: Vital Signs x48h Temp Pulse Resp BP Pulse Ox 08/25/22 08:17 36.8 C 110 H 19 120/71 93 Intake & Output: Intake & Output 08/22/22 08/23/22 08/24/22 08/25/22 23:59 23:59 23:59 23:59 Intake Total 19994919.908 7428.667 Balance 1999 1529.667 - Objective General Appearance: positive: Alert, Other (Fatigued appearing white male. Able to lay back comfortably. The bed is just not very comfortable.) Eyes Bilateral: positive: PERRL, EOMI ENT: positive: Pharynx nml, No signs of dehydration Neck: positive: No JVD. negative: Stiff neck Respiratory: positive: Chest non-tender, No respiratory distress, Other (Breath sounds diminished at the bases.). negative: Wheezes, Rales, Rhonchi Cardiovascular: positive: Regular rate & rhythm, Tachycardia Abdomen: positive: Tenderness (Between the umbilicus and the epigastrium. Upper mid abdomen. No rebound or guarding. Its mild), Other (Diffusely bloated abdomen) Skin: positive: Warm, Dry, Pallor Extremities: positive: Full ROM, No pedal edema Neurologic/Psychiatric: positive: Oriented x3, CN's nml (2-12), Motor nml - Lab Results Fish Bones: 08/25/22 04:38 08/25/22 04:38 Other Labs: Lab Results x24hrs 08/25/22 08/25/22 08/24/22 Range/Units 04:38 04:38 08:57 WBC 13.8 H (4.8-10.8) x10^3/uL RBC 4.44 L (4.70-6.10) 10^6/uL Hgb 12.2 L (14.0-18.0) g/dL Hct 38.6 L (42.0-52.0) % MCV 86.9 (80.0-94.0) fL MCH 27.5 (27.0-31.0) pg MCHC 31.6 L (32.0-36.0) g/dL RDW 13.4 (12.0-15.0) % Plt Count 232 (130-450) 10^3/uL MPV 10.2 (7.4-11.4) fL Neut # (Auto) 11.2 H (1.5-6.6) 10^3/uL Lymph # (Auto) 1.5 (1.5-3.5) 10^3/uL [place] # (Auto) 0.9 (0.0-1.0) 10^3/uL Eos # (Auto) 0.1 (0.0-0.7) 10^3/uL Baso # (Auto) 0.1 (0.0-0.1) 10^3/uL Absolute Nucleated RBC 0.00 x10^3/uL Nucleated RBC % 0.0 /100WBC Sodium 134 L (135-145) mmol/L Potassium 3.4 L (3.5-5.0) mmol/L Chloride 100 L (101-111) mmol/L Carbon Dioxide 25 (21-32) mmol/L Anion Gap 9.0 (6-13) BUN 10 (6-20) mg/dL Creatinine 0.7 (0.6-1.2) mg/dL Estimated GFR (MDRD) 126 (>89) Glucose 133 H (70-100) mg/dL Estimat Average Glucose (70-100) mg/dL Hemoglobin A1c % (4.27-6.07) % Calcium 8.2 L (8.5-10.3) mg/dL Total Bilirubin 1.4 H (0.2-1.0) mg/dL AST 22 (10-42) IU/L ALT 142 H (10-60) IU/L Alkaline Phosphatase 80 (42-121) IU/L Total Protein 6.5 L (6.7-8.2) g/dL Albumin 3.3 (3.2-5.5) g/dL Globulin 3.2 (2.1-4.2) g/dL Albumin/Globulin Ratio 1.0 (1.0-2.2) Ceruloplasmin (16.0-31.0) mg/dL Lipase 129 H (22-51) U/L Hepatitis A IgM Ab Negative (Negative) Hep Bs Antigen Negative (Negative) Hep B Core IgM Ab Negative (Negative) Hepatitis C Antibody <0.1 (0.0-0.9) s/co ratio Hepatitis C Interp Comment (.) 08/24/22 08/23/22 Range/Units 05:08 13:17 WBC (4.8-10.8) x10^3/uL RBC (4.70-6.10) 10^6/uL Hgb (14.0-18.0) g/dL Hct (42.0-52.0) % MCV (80.0-94.0) fL MCH (27.0-31.0) pg MCHC (32.0-36.0) g/dL RDW (12.0-15.0) % Plt Count (130-450) 10^3/uL MPV (7.4-11.4) fL Neut # (Auto) (1.5-6.6) 10^3/uL Lymph # (Auto) (1.5-3.5) 10^3/uL [place] # (Auto) (0.0-1.0) 10^3/uL Eos # (Auto) (0.0-0.7) 10^3/uL Baso # (Auto) (0.0-0.1) 10^3/uL Absolute Nucleated RBC x10^3/uL Nucleated RBC % /100WBC Sodium (135-145) mmol/L Potassium (3.5-5.0) mmol/L Chloride (101-111) mmol/L Carbon Dioxide (21-32) mmol/L Anion Gap (6-13) BUN (6-20) mg/dL Creatinine (0.6-1.2) mg/dL Estimated GFR (MDRD) (>89) Glucose (70-100) mg/dL Estimat Average Glucose 140 H (70-100) mg/dL Hemoglobin A1c % 6.5 H (4.27-6.07) % Calcium (8.5-10.3) mg/dL Total Bilirubin (0.2-1.0) mg/dL AST (10-42) IU/L ALT (10-60) IU/L Alkaline Phosphatase (42-121) IU/L Total Protein (6.7-8.2) g/dL Albumin (3.2-5.5) g/dL Globulin (2.1-4.2) g/dL Albumin/Globulin Ratio (1.0-2.2) Ceruloplasmin 19.6 (16.0-31.0) mg/dL Lipase (22-51) U/L Hepatitis A IgM Ab (Negative) Hep Bs Antigen (Negative) Hep B Core IgM Ab (Negative) Hepatitis C Antibody (0.0-0.9) s/co ratio Hepatitis C Interp (.) Assessment/Plan - Problem List (1) Tachycardia Impression: Check EKG to make sure this is sinus tachycardia and that he has not gone into atrial fibrillation. If he has gone into atrial fibrillation, I will be doing a CT pulmonary angiogram He is not on Lovenox for DVT prophylaxis. I will start that (2) Acute pancreatitis Impression: . Differential diagnosis for acute pancreatitis is going to be hypertriglyc eridemia, gallstones, alcohol. His history was that of biliary colic after a huge fatty meal superimposed on fatty liver disease. I thought for sure he was going to have stones. But all objective measures including CT of the abdomen, ultrasound, and MRCP do not show stones. Yet he still continues to describe intermittent biliary colic. Located in the epigastrium. Just underneath the xiphoid process. The pain is moved today. It is now lower, going toward the umbilicus. More generalized. Not colicky. He continues to have abdominal pain. So I repeated his CT today. CT does not show any worsening disease. The same peripancreatic stranding. No phlegmon, no organizing abscess. Labs have improved. I tried to reassure him by telling him that his labs have improved. Bili was never elevated AST was 293 on admission and is now 22. ALT was 457 on admission and is now 142. Alk phos has never been elevated. White cell count remains slightly elevated. He was 14.6 on admission and is 13.8. I do not attribute that to infection but more to inflammatory demargination. Triglycerides were 1156 on admission and were 401 the next day. Plan: He was just on popsicles. So I am advancing him to clear liquid diet. If he tolerates that for breakfast and lunch, consider a low-fat diet for dinner. Pancreatitis type: other Acute pancreatitis complication: no infection or necrosis Qualified Code(s): K85.80 - Other acute pancreatitis without necrosis or infection (2) Hypertriglyceridemia Conclusion/Plan: Most likely familial, but he is morbidly obese at 5 foot 11 inches tall 117.9 kg. He may have a problem with his diet. With fasting, triglycerides have come down tremendously on their own. Plan: Clear liquid diet today. Advance to low-fat diet by this evening if he tolerates it. Consider Tricor at discharge (3) Abnormal liver enzymes Conclusion/Plan: I thought that his elevated liver enzymes were from fatty liver. But they have improved as the admission has gone on. This is one of the reasons I thought he passed a common bile duct stone. He had transitory colic, transitory blockage of his common bile duct causing pancreatitis and hepatitis. However Objective evaluation shows no stones. No sludge. No dilation of any of his ducts. Repeat CT today continues to show no intraductal or extrahepatic biliary dilatation. Hepatitis work-up or elevated liver enzyme work-up is in process. This is quite a bit of send out labs. I will review those labs once they are available. Plan: Review labs once available (4) Hyperglycemia Lifestyle change. He is going to need to modify his diet not only for his glucose but for his triglycerides and for his fatty liver. Nutrition counseling in the room today. Nutrition services and I discussed the case. I do not think it warrants checking his sugar before meals and giving him sliding scale insulin at this time. If his fasting glucose is above 150 I will do so.
[2022-08-25] MEDS: ENOXAPARIN 40 MG/0.4 ML SYRINGE SUBQ SCH (15:16)
[2022-08-25] MEDS: SODIUM CHLORIDE FLUSH 0.9% 10 ML SYRINGE IVP PRN (19:00)
[2022-08-26] MEDS: SODIUM CHLORIDE 0.9% 1,000 ML IV SCH ×3 (01:42→20:52)
[2022-08-26] MEDS: HYDROmorphone 0.5 MG/0.5 ML SYRINGE IVP PRN ×5 (03:11→19:59)
[2022-08-26 05:43] LABS: BASOPHILS # (AUTO) 0.1 10^3/uL (0.0-0.1); BASOPHILS % (AUTO) 0.4 %; EOSINOPHILS # (AUTO) 0.3 10^3/uL (0.0-0.7); HCT - HEMATOCRIT 39.1 % (42.0-52.0); LYMPHOCYTES # (AUTO) 1.9 10^3/uL (1.5-3.5); LYMPHOCYTES % (AUTO) 13.9 %; MEAN CORPUSCULAR HGB CONC 30.7 g/dL (32.0-36.0); MEAN CORPUSCULAR VOLUME 88.1 fL (80.0-94.0); MEAN PLATELET VOLUME 10.5 fL (7.4-11.4); MONOCYTES # (AUTO) 0.8 10^3/uL (0.0-1.0); MONOCYTES % (AUTO) 6.3 %; NEUTROPHILS # (AUTO) 10.3 10^3/uL (1.5-6.6); NEUTROPHILS % (AUTO) 76.4 %; PLT - PLATELET COUNT 232 10^3/uL (130-450); RED BLOOD COUNT 4.44 10^6/uL (4.70-6.10); WHITE BLOOD COUNT 13.4 x10^3/uL (4.8-10.8)
[2022-08-26 05:56] LABS: ALBUMIN 3.1 g/dL (3.2-5.5); ALBUMIN/GLOBULIN RATIO 0.9 (1.0-2.2); BILIRUBIN,TOTAL 0.9 mg/dL (0.2-1.0); CALCIUM 8.6 mg/dL (8.5-10.3); CREATININE 0.7 mg/dL (0.6-1.2); POTASSIUM 3.5 mmol/L (3.5-5.0); TOTAL PROTEIN 6.7 g/dL (6.7-8.2)
[2022-08-26] MEDS: ENOXAPARIN 40 MG/0.4 ML SYRINGE SUBQ SCH (09:08)
[2022-08-26] MEDS: SODIUM CHLORIDE FLUSH 0.9% 10 ML SYRINGE IVP SCH ×2 (09:09→16:16)
--- NOTE | 2022-08-26 20:02 | PROVIDER PROGRESS NOTE ---
Assessment/Plan - Problem List (1) Acute pancreatitis Assessment/Plan: (2) Acute pancreatitis Impression: Differential diagnosis for acute pancreatitis is going to be hypertriglyce ridemia, gallstones, alcohol. His history was that of biliary colic after a huge fatty meal superimposed on fatty liver disease. But all objective measures including CT of the abdomen, ultrasound, and MRCP do not show stones. Yet he still continues to describe intermittent pain. Located in the epigastrium. More generalized. Not colicky. The repeated his CT does not show any worsening disease. The same peripancreatic stranding. No phlegmon, no organizing abscess. Labs have improved. White cell count was slightly elevated, attribute to inflammatory demargination. Triglycerides were 1156 on admission and were 401 the next day. It looks like Hypertriglyceridemia is the cause of this attack. Plan: Will try advancing his clear liquid diet to melendez a.m. to soft and low fat. Continue pain meds and iv fluids Pancreatitis type: other Acute pancreatitis complication: no infection or necrosis Qualified Code(s): K85.80 - Other acute pancreatitis without necrosis or infection (2) Hypertriglyceridemia Conclusion/Plan: Most likely familial plus lifestyle, since he is morbidly obese at 5 foot 11 inches tall 117.9 kg. With fasting, his triglycerides have come down trem endously on their own. Plan: Clear liquid diet today. Advance to soft, low-fat diet for breakfast tomorrow 08/27. Will likely order Tricor at discharge (3) Abnormal liver enzymes Conclusion/Plan: We considered that his elevated liver enzymes were from fatty liver. But they have improved as the admission has gone on. Repeat CT abd/pelvis continues to show no intraductal or extrahepatic biliary dilatation. Hepatitis work-up for elevated liver enzyme work-up is in process. This is quite a bit of send out labs. Plan: Review labs once available (4) Hyperglycemia A1c came back at 6.4 Plan: Lifestyle change will be needed: to modify his diet not only for his glucose but for his triglycerides and for his fatty liver. Nutrition counseling done by me in the room again today. I do not think his case warrants checking his sugar before meals and giving him sliding scale insulin at this time. If his fasting glucose is above 150, then we will do so. - Current Meds Current Meds: Current Medications Generic Name Dose Route Start Last Admin Trade Name Freq PRN Reason Stop Dose Admin Enoxaparin Sodium 40 mg 08/25/22 12:00 08/26/22 09:08 Enoxaparin 40 Mg/0.4 Ml Syringe SUBQ 40 mg DAILY EVONNE Administration Hydromorphone HCl 0.5 - 1 mg 08/23/22 20:49 08/26/22 16:15 Hydromorphone 0.5 Mg/0.5 Ml Syringe IVP 1 mg Q3H PRN Administration PAIN Sodium Chloride 1,000 mls @ 100 mls/hr 08/25/22 12:00 08/26/22 11:14 Normal Saline 0.9% IV 100 mls/hr .Q10H EVONNE Administration Ondansetron HCl 4 mg 08/23/22 17:45 08/24/22 06:36 Ondansetron 4 Mg/2 Ml Vial IVP 4 mg Q6HR PRN Administration Nausea / Vomiting Sodium Chloride 10 ml 08/23/22 17:45 08/25/22 19:00 Sodium Chloride Flush 0.9% 10 Ml Syringe IVP 10 ml PRN PRN Administration NEEDED PER PROVIDER ORDERS Sodium Chloride 10 ml 08/24/22 01:00 08/26/22 16:16 Sodium Chloride Flush 0.9% 10 Ml Syringe IVP 10 ml 0100,0900,1700 EVONNE Administration Zolpidem Tartrate 5 mg 08/23/22 22:42 08/25/22 00:26 Zolpidem 5 Mg Tablet PO 5 mg QPM PRN Administration Insomnia - Lab Result Fish Bone Diagrams: 08/27/22 04:51 08/27/22 04:51 - Additional Planning My Orders: My Active Orders 08/27/22 Breakfast Low Fat Diet [DIET] Subjective - Subjective Patient Reports: Pain (Pain is controlled on this hgher dose of narcotic, but pain still returns. No pain with eating a clear liquid diet. It hurts to laygh or strain his abd wall, like to sit up.) Objective Vital Signs: Vital Signs - 24 hr 08/25/22 08/26/22 08/26/22 23:48 09:10 16:00 Temperature 37.8 C 37.0 C 37.3 C Heart Rate [ 110 H 96 95 Brachial] Respiratory 18 18 18 Rate Blood Pressure 126/77 123/70 117/73 [Right Brachial artery] O2 Saturation 94 95 96 Oxygen O2 Source Room air I&O (Last 24 Hrs): Intake and Output Totals x24h 08/24/22 08/25/22 08/26/22 23:59 23:59 23:59 Intake Total 5641.652 2428.000 3246.000 Balance 9677.545 2350.000 3246.000 General: Alert, Oriented x3, No acute distress HEENT: Mucous membr. moist/pink Neck: Supple, No JVD Neuro: Alert, Non Focal Cardiovascular: Regular rate, No murmurs Respiratory: No respiratory distress, Breath sounds nml Abdomen: Normal bowel sounds, Soft, Other (Tender in RUQ and LUQ, without guarding or rebouns) Extremities: No clubbing, No edema, No tenderness/swelling - Results Results: Laboratory Results WBC 13.4 x10^3/uL (4.8-10.8) H 08/26/22 04:50 RBC 4.44 10^6/uL (4.70-6.10) L 08/26/22 04:50 Hgb 12.0 g/dL (14.0-18.0) L 08/26/22 04:50 Hct 39.1 % (42.0-52.0) L 08/26/22 04:50 MCV 88.1 fL (80.0-94.0) 08/26/22 04:50 MCH 27.0 pg (27.0-31.0) 08/26/22 04:50 MCHC 30.7 g/dL (32.0-36.0) L 08/26/22 04:50 RDW 13.0 % (12.0-15.0) 08/26/22 04:50 Plt Count 232 10^3/uL (130-450) 08/26/22 04:50 MPV 10.5 fL (7.4-11.4) 08/26/22 04:50 Neut # (Auto) 10.3 10^3/uL (1.5-6.6) H 08/26/22 04:50 Lymph # (Auto) 1.9 10^3/uL (1.5-3.5) 08/26/22 04:50 [place] # (Auto) 0.8 10^3/uL (0.0-1.0) 08/26/22 04:50 Eos # (Auto) 0.3 10^3/uL (0.0-0.7) 08/26/22 04:50 Baso # (Auto) 0.1 10^3/uL (0.0-0.1) 08/26/22 04:50 Absolute Nucleated RBC 0.00 x10^3/uL 08/26/22 04:50 Nucleated RBC % 0.0 /100WBC 08/26/22 04:50 Sodium 136 mmol/L (135-145) 08/26/22 04:50 Potassium 3.5 mmol/L (3.5-5.0) 08/26/22 04:50 Chloride 101 mmol/L (101-111) 08/26/22 04:50 Carbon Dioxide 27 mmol/L (21-32) 08/26/22 04:50 Anion Gap 8.0 (6-13) 08/26/22 04:50 BUN 9 mg/dL (6-20) 08/26/22 04:50 Creatinine 0.7 mg/dL (0.6-1.2) 08/26/22 04:50 Estimated GFR (MDRD) 126 (>89) 08/26/22 04:50 Glucose 126 mg/dL (70-100) H 08/26/22 04:50 Estimat Average Glucose 140 mg/dL (70-100) H 08/24/22 05:08 Hemoglobin A1c % 6.5 % (4.27-6.07) H 08/24/22 05:08 Calcium 8.6 mg/dL (8.5-10.3) 08/26/22 04:50 Ferritin 172.6 ng/mL (23.9-336.2) 08/24/22 05:08 Total Bilirubin 0.9 mg/dL (0.2-1.0) 08/26/22 04:50 AST 13 IU/L (10-42) 08/26/22 04:50 ALT 90 IU/L (10-60) H 08/26/22 04:50 Alkaline Phosphatase 80 IU/L (42-121) 08/26/22 04:50 Total Protein 6.7 g/dL (6.7-8.2) 08/26/22 04:50 Albumin 3.1 g/dL (3.2-5.5) L 08/26/22 04:50 Globulin 3.6 g/dL (2.1-4.2) 08/26/22 04:50 Albumin/Globulin Ratio 0.9 (1.0-2.2) L 08/26/22 04:50 Ceruloplasmin 19.6 mg/dL (16.0-31.0) 08/23/22 13:17 Triglycerides 401 mg/dL (-149) H 08/24/22 05:08 Cholesterol 176 mg/dL (-199) 08/24/22 05:08 LDL Cholesterol Direct 58 mg/dL (-129) 08/24/22 05:08 LDL Cholesterol, Calc Not Reportable 08/24/22 05:08 VLDL Cholesterol Not Reportable 08/24/22 05:08 HDL Cholesterol 19 mg/dL (60-) L 08/24/22 05:08 LDL/HDL Ratio Not Reportable 08/24/22 05:08 dLDL/HDL Ratio 3.1 (<3.6) 08/24/22 05:08 Cholesterol/HDL Ratio 9.3 (<5.0) 08/24/22 05:08 Lipase 52 U/L (22-51) H 08/26/22 04:50 Hepatitis A IgM Ab Negative (Negative) 08/24/22 08:57 Hep Bs Antigen Negative (Negative) 08/24/22 08:57 Hep B Core IgM Ab Negative (Negative) 08/24/22 08:57 Hepatitis C Antibody <0.1 s/co ratio (0.0-0.9) 08/24/22 08:57 Hepatitis C Interp Comment (.) 08/24/22 08:57 SARS-CoV-2 (PCR) NOT DETECTED 08/23/22 16:15
[2022-08-26 22:06] LABS: ANTI-DNA (DS) AB QN <1 IU/mL (0-9); CENTROMERE B ANTIBODIES <0.2 AI (0.0-0.9); CHROMATIN ANTIBODIES <0.2 AI (0.0-0.9); JO-1 AB <0.2 AI (0.0-0.9); RIBOSOMAL P ANTIBODIES <0.2 AI (0.0-0.9); RNP ANTIBODIES <0.2 AI (0.0-0.9); SCLERODERMA-70 ANTIBODIES <0.2 AI (0.0-0.9); SJOGREN'S ANTI-SS-A <0.2 AI (0.0-0.9); SJOGREN'S ANTI-SS-B <0.2 AI (0.0-0.9); SMITH ANTIBODIES <0.2 AI (0.0-0.9); SMITH/RNP ANTIBODIES <0.2 AI (0.0-0.9)
[2022-08-27] MEDS: ONDANSETRON 4 MG/2 ML VIAL IVP PRN ×3 (00:26→21:57)
[2022-08-27] MEDS: SODIUM CHLORIDE FLUSH 0.9% 10 ML SYRINGE IVP SCH ×3 (00:26→17:40)
[2022-08-27] MEDS: HYDROmorphone 0.5 MG/0.5 ML SYRINGE IVP PRN ×5 (00:26→21:56)
[2022-08-27 05:32] LABS: BASOPHILS % (AUTO) 0.4 %; EOSINOPHILS # (AUTO) 0.4 10^3/uL (0.0-0.7); EOSINOPHILS % (AUTO) 3.8 %; HCT - HEMATOCRIT 37.7 % (42.0-52.0); HGB - HEMOGLOBIN 11.6 g/dL (14.0-18.0); LYMPHOCYTES # (AUTO) 1.7 10^3/uL (1.5-3.5); LYMPHOCYTES % (AUTO) 15.8 %; MEAN CORPUSCULAR HEMOGLOBIN 26.7 pg (27.0-31.0); MEAN CORPUSCULAR HGB CONC 30.8 g/dL (32.0-36.0); MEAN CORPUSCULAR VOLUME 86.9 fL (80.0-94.0); MEAN PLATELET VOLUME 10.3 fL (7.4-11.4); MONOCYTES # (AUTO) 0.6 10^3/uL (0.0-1.0); MONOCYTES % (AUTO) 5.7 %; NEUTROPHILS # (AUTO) 7.9 10^3/uL (1.5-6.6); NEUTROPHILS % (AUTO) 73.3 %; PLT - PLATELET COUNT 253 10^3/uL (130-450); RED BLOOD COUNT 4.34 10^6/uL (4.70-6.10); RED CELL DISTRIBUTION WIDTH 12.8 % (12.0-15.0); WHITE BLOOD COUNT 10.8 x10^3/uL (4.8-10.8)
[2022-08-27 05:41] LABS: ALBUMIN 3.2 g/dL (3.2-5.5); ALBUMIN/GLOBULIN RATIO 0.9 (1.0-2.2); BILIRUBIN,TOTAL 1.1 mg/dL (0.2-1.0); CALCIUM 8.4 mg/dL (8.5-10.3); CREATININE 0.7 mg/dL (0.6-1.2); POTASSIUM 3.3 mmol/L (3.5-5.0); TOTAL PROTEIN 6.8 g/dL (6.7-8.2)
[2022-08-27] MEDS: SODIUM CHLORIDE 0.9% 1,000 ML IV SCH (06:47)
[2022-08-27] MEDS: ENOXAPARIN 40 MG/0.4 ML SYRINGE SUBQ SCH (08:02)
[2022-08-27] MEDS ORDERED: SODIUM CHLORIDE 0.9% 1,000 ML IV SCH (09:23)
[2022-08-27] MEDS: POTASSIUM CHLOR 10 MEQ/100 ML 10 MEQ/100 ML BAG IV SCH ×2 (09:33→10:47)
--- NOTE | 2022-08-27 12:44 | PROVIDER PROGRESS NOTE ---
Assessment/Plan - Problem List (1) Acute pancreatitis Assessment/Plan: In the differential diagnosis for his acute pancreatitis is most likely hypertriglyceridemia, not gallstones, or alcohol -induced. His history was that of biliary colic after a huge fatty meal superimposed on fatty liver disease. CT of the abdomen, ultrasound, and MRCP did not show stones. He continued to describe intermittent pain. Located in the epigastrium. so a repeat CT was done and did not show any worsening disease. The same peripancreatic stranding. No phlegmon, no organizing abscess. Labs have improved. White cell count was slightly elevated, attribute to inflammatory demargination. Triglycerides were 1156 on admission and were 401 the next day. Today he is nauseated after eating his first soft, low fat meal for breakfast. Then the smell of lunch also nauseated him. Plan: We need to de-escalate his diet back to clear liquids today for more bowel rest. But will re-try advancing to a pureed diet tomorrow for breakfast. Continue pain meds and iv fluids, but will decrease iv fluid rate Pancreatitis type: other Acute pancreatitis complication: no infection or necrosis Qualified Code(s): K85.80 - Other acute pancreatitis without necrosis or infection (2) Cough He describes a cough which he had before admission, it was gone when he was on clear liquids, and recurred today when a soft diet was started. Perhaps he is aspirating. Perhaps he is having GE reflux. Plan: Will obtain a CXR IV fluid rate to decrease today. Will order Protonix before (solid) meals. (3) Hypertriglyceridemia Conclusion/Plan: Most likely familial plus lifestyle, since he is morbidly obese at 5 foot 11 inches tall 117.9 kg. With fasting, his triglycerides have come down tremendo usly on their own. Plan: We are still adjusting his diet. Will likely order Tricor at discharge Will order Nutrition consult (4) Abnormal liver enzymes Conclusion/Plan: We considered that his elevated liver enzymes were from fatty liver. But they have improved as this admission has gone on. Repeat CT abd/pelvis continues to show no intraductal or extrahepatic biliary dilatation. Hepatitis work-up for elevated liver enzyme work-up is in process. This is quite a bit of send out labs. Plan: Review labs once available (5) Hyperglycemia A1c came back at 6.4 Plan: Lifestyle change will be needed: to modify his diet not only for his glucose but for his triglycerides and for his fatty liver. Nutrition counseling done by me in the room again today. Will order Nutrition consult I do not think his case warrants checking his sugar before meals and giving him sliding scale insulin at this time. If his fasting glucose is above 150, then we will do so. - Current Meds Current Meds: Current Medications Generic Name Dose Route Start Last Admin Trade Name Freq PRN Reason Stop Dose Admin Enoxaparin Sodium 40 mg 08/25/22 12:00 08/27/22 08:02 Enoxaparin 40 Mg/0.4 Ml Syringe SUBQ 40 mg DAILY EVONNE Administration Hydromorphone HCl 0.5 - 1 mg 08/23/22 20:49 08/27/22 08:02 Hydromorphone 0.5 Mg/0.5 Ml Syringe IVP 1 mg Q3H PRN Administration PAIN Ondansetron HCl 4 mg 08/23/22 17:45 08/27/22 00:26 Ondansetron 4 Mg/2 Ml Vial IVP 4 mg Q6HR PRN Administration Nausea / Vomiting Sodium Chloride 10 ml 08/23/22 17:45 08/25/22 19:00 Sodium Chloride Flush 0.9% 10 Ml Syringe IVP 10 ml PRN PRN Administration NEEDED PER PROVIDER ORDERS Sodium Chloride 10 ml 08/24/22 01:00 08/27/22 08:02 Sodium Chloride Flush 0.9% 10 Ml Syringe IVP Not Given 0100,0900,1700 EVONNE Zolpidem Tartrate 5 mg 08/23/22 22:42 08/25/22 00:26 Zolpidem 5 Mg Tablet PO 5 mg QPM PRN Administration Insomnia - Lab Result Fish Bone Diagrams: 08/27/22 04:51 08/27/22 04:51 - Additional Planning My Orders: My Active Orders 08/27/22 Breakfast Low Fat Diet [DIET] 08/27/22 09:23 Sodium Chloride 0.9% [Normal Saline 0.9%] 1,000 ml IV 60 mls/hr 08/27/22 Dinner Clear Liquid Diet [DIET] 08/28/22 05:00 BMP - BASIC METABOLIC PANEL [CHEM] DAILYLAB CBC - COMP BLD CT W/AUTO DIFF [HEME] DAILYLAB Subjective - Subjective Patient Reports: Nausea (About 2 hours after taking a soft low fat diet for caio akfast, he got nauseated. Then as lunch was brought into room, the small of it nauseated him again, and he could not eat lunch.), Pain (Much better at rest, still hurts in epigastrium to laugh or cough, or flex abd to get OOB.) Objective Vital Signs: Vital Signs - 24 hr 08/26/22 08/27/22 08/27/22 16:00 00:00 08:00 Temperature 37.3 C 37.6 C 37.6 C Heart Rate [ 95 99 97 Brachial] Respiratory 18 16 18 Rate Blood Pressure 117/73 135/72 H 122/75 [Right Brachial artery] O2 Saturation 96 96 96 Oxygen O2 Source Room air I&O (Last 24 Hrs): Intake and Output Totals x24h 08/25/22 08/26/22 08/27/22 23:59 23:59 23:59 Intake Total 3533.000 4209.333 1991.668 Balance 3533.000 4209.333 1991.8 General: Alert, Oriented x3 HEENT: Mucous membr. moist/pink Neck: Supple, No JVD Neuro: Alert, Non Focal Cardiovascular: Regular rate, No murmurs Respiratory: No respiratory distress, Rales (R base) Abdomen: Normal bowel sounds, Soft, No tenderness Extremities: No clubbing, No edema, No tenderness/swelling - Results Results: Laboratory Results WBC 10.8 x10^3/uL (4.8-10.8) 08/27/22 04:51 RBC 4.34 10^6/uL (4.70-6.10) L 08/27/22 04:51 Hgb 11.6 g/dL (14.0-18.0) L 08/27/22 04:51 Hct 37.7 % (42.0-52.0) L 08/27/22 04:51 MCV 86.9 fL (80.0-94.0) 08/27/22 04:51 MCH 26.7 pg (27.0-31.0) L 08/27/22 04:51 MCHC 30.8 g/dL (32.0-36.0) L 08/27/22 04:51 RDW 12.8 % (12.0-15.0) 08/27/22 04:51 Plt Count 253 10^3/uL (130-450) 08/27/22 04:51 MPV 10.3 fL (7.4-11.4) 08/27/22 04:51 Neut # (Auto) 7.9 10^3/uL (1.5-6.6) H 08/27/22 04:51 Lymph # (Auto) 1.7 10^3/uL (1.5-3.5) 08/27/22 04:51 [place] # (Auto) 0.6 10^3/uL (0.0-1.0) 08/27/22 04:51 Eos # (Auto) 0.4 10^3/uL (0.0-0.7) 08/27/22 04:51 Baso # (Auto) 0.0 10^3/uL (0.0-0.1) 08/27/22 04:51 Absolute Nucleated RBC 0.00 x10^3/uL 08/27/22 04:51 Nucleated RBC % 0.0 /100WBC 08/27/22 04:51 Sodium 135 mmol/L (135-145) 08/27/22 04:51 Potassium 3.3 mmol/L (3.5-5.0) L 08/27/22 04:51 Chloride 99 mmol/L (101-111) L 08/27/22 04:51 Carbon Dioxide 27 mmol/L (21-32) 08/27/22 04:51 Anion Gap 9.0 (6-13) 08/27/22 04:51 BUN 10 mg/dL (6-20) 08/27/22 04:51 Creatinine 0.7 mg/dL (0.6-1.2) 08/27/22 04:51 Estimated GFR (MDRD) 126 (>89) 08/27/22 04:51 Glucose 124 mg/dL (70-100) H 08/27/22 04:51 Estimat Average Glucose 140 mg/dL (70-100) H 08/24/22 05:08 Hemoglobin A1c % 6.5 % (4.27-6.07) H 08/24/22 05:08 Calcium 8.4 mg/dL (8.5-10.3) L 08/27/22 04:51 Ferritin 172.6 ng/mL (23.9-336.2) 08/24/22 05:08 Total Bilirubin 1.1 mg/dL (0.2-1.0) H 08/27/22 04:51 AST 13 IU/L (10-42) 08/27/22 04:51 ALT 65 IU/L (10-60) H 08/27/22 04:51 Alkaline Phosphatase 74 IU/L (42-121) 08/27/22 04:51 Total Protein 6.8 g/dL (6.7-8.2) 08/27/22 04:51 Albumin 3.2 g/dL (3.2-5.5) 08/27/22 04:51 Globulin 3.6 g/dL (2.1-4.2) 08/27/22 04:51 Albumin/Globulin Ratio 0.9 (1.0-2.2) L 08/27/22 04:51 Ceruloplasmin 19.6 mg/dL (16.0-31.0) 08/23/22 13:17 Triglycerides 401 mg/dL (-149) H 08/24/22 05:08 Cholesterol 176 mg/dL (-199) 08/24/22 05:08 LDL Cholesterol Direct 58 mg/dL (-129) 08/24/22 05:08 LDL Cholesterol, Calc Not Reportable 08/24/22 05:08 VLDL Cholesterol Not Reportable 08/24/22 05:08 HDL Cholesterol 19 mg/dL (60-) L 08/24/22 05:08 LDL/HDL Ratio Not Reportable 08/24/22 05:08 dLDL/HDL Ratio 3.1 (<3.6) 08/24/22 05:08 Cholesterol/HDL Ratio 9.3 (<5.0) 08/24/22 05:08 Lipase 41 U/L (22-51) 08/27/22 04:51 ELSIE Interpretation Comment (.) 08/24/22 08:57 Anti-sm/GERONTOLOGICAL NURSE PRACTITIONER Abs <0.2 AI (0.0-0.9) 08/24/22 08:57 ENMA-1 Antibody <0.2 AI (0.0-0.9) 08/24/22 08:57 SS-A/Ro Antibody <0.2 AI (0.0-0.9) 08/24/22 08:57 SS-B/La Antibody <0.2 AI (0.0-0.9) 08/24/22 08:57 Sm (Kirk) Antibody <0.2 AI (0.0-0.9) 08/24/22 08:57 GERONTOLOGICAL NURSE PRACTITIONER Antibody <0.2 AI (0.0-0.9) 08/24/22 08:57 Scl-70 Scleroderma Ab <0.2 AI (0.0-0.9) 08/24/22 08:57 Double Strand DNA Ab <1 IU/mL (0-9) 08/24/22 08:57 Ribosomal P Prot Ab <0.2 AI (0.0-0.9) 08/24/22 08:57 Chromatin Antibody <0.2 AI (0.0-0.9) 08/24/22 08:57 Centromere B Antibody <0.2 AI (0.0-0.9) 08/24/22 08:57 Hepatitis A IgM Ab Negative (Negative) 08/24/22 08:57 Hep Bs Antigen Negative (Negative) 08/24/22 08:57 Hep B Core IgM Ab Negative (Negative) 08/24/22 08:57 Hepatitis C Antibody <0.1 s/co ratio (0.0-0.9) 08/24/22 08:57 Hepatitis C Interp Comment (.) 08/24/22 08:57 SARS-CoV-2 (PCR) NOT DETECTED 08/23/22 16:15
--- NOTE | 2022-08-27 13:02 | XRAY Report ---
PROCEDURE: Chest 1 View X-Ray INDICATIONS: New cough and R sided rales TECHNIQUE: One view of the chest was acquired. COMPARISON: None. FINDINGS: Surgical changes and devices: None. Lungs and pleura: No pleural effusions or pneumothorax. Minimal patchy bilateral atelectasis. Mediastinum: Mediastinal contours appear normal. Heart size is normal. Bones and chest wall: No suspicious bony lesions. Overlying soft tissues appear unremarkable. IMPRESSION: Minimal patchy bilateral atelectasis. Reviewed by: Rafi Mix MD on 08/27/2022 1:00 PM PST Approved by: Rafi Mix MD on 08/27/2022 1:00 PM PST Station ID: [id number]
[2022-08-27] MEDS: SODIUM CHLORIDE FLUSH 0.9% 10 ML SYRINGE IVP PRN (21:56)
[2022-08-28] MEDS: SODIUM CHLORIDE FLUSH 0.9% 10 ML SYRINGE IVP SCH ×4 (01:01→23:40)
[2022-08-28] MEDS: PANTOPRAZOLE 40 MG TABLET PO SCH (06:01)
[2022-08-28 06:56] LABS: BASOPHILS % (AUTO) 0.4 %; EOSINOPHILS # (AUTO) 0.4 10^3/uL (0.0-0.7); EOSINOPHILS % (AUTO) 3.3 %; HCT - HEMATOCRIT 37.1 % (42.0-52.0); HGB - HEMOGLOBIN 11.8 g/dL (14.0-18.0); LYMPHOCYTES # (AUTO) 1.5 10^3/uL (1.5-3.5); LYMPHOCYTES % (AUTO) 14.3 %; MEAN CORPUSCULAR HEMOGLOBIN 27.2 pg (27.0-31.0); MEAN CORPUSCULAR HGB CONC 31.8 g/dL (32.0-36.0); MEAN CORPUSCULAR VOLUME 85.5 fL (80.0-94.0); MONOCYTES # (AUTO) 0.6 10^3/uL (0.0-1.0); PLT - PLATELET COUNT 277 10^3/uL (130-450); RED BLOOD COUNT 4.34 10^6/uL (4.70-6.10); RED CELL DISTRIBUTION WIDTH 12.8 % (12.0-15.0); WHITE BLOOD COUNT 10.6 x10^3/uL (4.8-10.8)
[2022-08-28 07:06] LABS: CALCIUM 8.7 mg/dL (8.5-10.3); CREATININE 0.8 mg/dL (0.6-1.2); POTASSIUM 3.4 mmol/L (3.5-5.0)
[2022-08-28] MEDS ORDERED: POTASSIUM CHLOR 10 MEQ/100 ML 10 MEQ/100 ML BAG IV SCH (08:00)
[2022-08-28] MEDS: HYDROmorphone 0.5 MG/0.5 ML SYRINGE IVP PRN (08:26)
[2022-08-28] MEDS: ENOXAPARIN 40 MG/0.4 ML SYRINGE SUBQ SCH (08:27)
--- NOTE | 2022-08-28 17:14 | PROVIDER PROGRESS NOTE ---
Assessment/Plan - Problem List (1) Acute pancreatitis Assessment/Plan: In the differential diagnosis for his acute pancreatitis is most likely hypertriglyceridemia, not gallstones, or alcohol -induced. His history was that of biliary colic after a huge fatty meal superimposed on fatty liver disease. CT of the abdomen, ultrasound, and MRCP did not show stones. He had persistent pain so a repeat CT was done and did not show any worsening disease. The same peripancreatic stranding. No phlegmon, no organizing abscess. Labs have improved. White cell count was slightly elevated, attribute to inflammatory demargination. Triglycerides were 1156 on admission and were 401 the next day. Today he is nauseated again, but pain has improved. Today he has an appetite for the first time. Plan: We need to de-escalate his diet back to clear liquids today for more bowel rest. But will re-try advancing to a pureed diet tomorrow for breakfast. Continue pain meds and iv fluids, but will decrease iv fluid rate even further. Pancreatitis type: other Acute pancreatitis complication: no infection or necrosis Qualified Code(s): K85.80 - Other acute pancreatitis without necrosis or infection (2) Cough He described a cough which he had before admission, it was gone when he was on clear liquids, and recurred when a soft diet was started. Perhaps he is aspirating. A CXR was obtaine yesterday and it showed mild bilateral atelectasis. Pt was reminded to use the IS meter. Perhaps he is having GE reflux, which is most likely. Plan: IV fluid rate to decrease again today. We ordered Protonix before (solid) meals. (3) Hypertriglyceridemia Conclusion/Plan: Most likely familial plus lifestyle, since he is morbidly obese at 5 foot 11 inches tall 117.9 kg. With fasting, his triglycerides have come down tremendously on their own. Plan: We are still adjusting his diet. Will likely order Tricor at discharge Will order Nutrition consult (4) Abnormal liver enzymes Conclusion/Plan: We considered that his elevated liver enzymes were from fatty liver. But they have improved as this admission has gone on. Repeat CT abd/pelvis continues to show no intraductal or extrahepatic biliary dilatation. Hepatitis work-up for elevated liver enzyme work-up is in process. This is quite a bit of send out labs. Plan: Review labs once available (5) Hyperglycemia A1c came back at 6.4 Plan: Lifestyle change will be needed: to modify his diet not only for his glucose but for his triglycerides and for his fatty liver. Nutrition counseling done by me in the room again today. Will order Nutrition consult I do not think his case warrants checking his sugar before meals and giving him sliding scale insulin at this time. If his fasting glucose is above 150, then we will do so. - Current Meds Current Meds: Current Medications Generic Name Dose Route Start Last Admin Trade Name Freq PRN Reason Stop Dose Admin Enoxaparin Sodium 40 mg 08/25/22 12:00 08/28/22 08:27 Enoxaparin 40 Mg/0.4 Ml Syringe SUBQ 40 mg DAILY EVONNE Administration Hydromorphone HCl 0.5 - 1 mg 08/23/22 20:49 08/28/22 08:26 Hydromorphone 0.5 Mg/0.5 Ml Syringe IVP 0.5 mg Q3H PRN Administration PAIN Sodium Chloride 1,000 mls @ 60 mls/hr 08/27/22 09:23 08/28/22 01:01 Normal Saline 0.9% IV 60 mls/hr .[id number] EVONNE Administration Ondansetron HCl 4 mg 08/23/22 17:45 08/27/22 21:57 Ondansetron 4 Mg/2 Ml Vial IVP 4 mg Q6HR PRN Administration Nausea / Vomiting Pantoprazole Sodium 40 mg 08/28/22 07:00 08/28/22 06:01 Pantoprazole 40 Mg Tablet PO 40 mg QDAC EVONNE Administration Sodium Chloride 10 ml 08/23/22 17:45 08/27/22 21:56 Sodium Chloride Flush 0.9% 10 Ml Syringe IVP 10 ml PRN PRN Administration NEEDED PER PROVIDER ORDERS Sodium Chloride 10 ml 08/24/22 01:00 08/28/22 08:27 Sodium Chloride Flush 0.9% 10 Ml Syringe IVP 10 ml 0100,0900,1700 EVONNE Administration Zolpidem Tartrate 5 mg 08/23/22 22:42 08/25/22 00:26 Zolpidem 5 Mg Tablet PO 5 mg QPM PRN Administration Insomnia - Lab Result Fish Bone Diagrams: 08/28/22 06:25 08/28/22 06:25 - Additional Planning My Orders: My Active Orders 08/28/22 07:00 Pantoprazole [Protonix] 40 mg PO QDAC 08/28/22 Lunch Clear Liquid Diet [DIET] 08/28/22 12:50 Nutrition Consult [CONS] Routine Subjective - Subjective Patient Reports: Nausea (Nauseated after having a pured breakfast. No pain throughout the day, no need for narcotics, his last dose was 0500. It no longer "hurts to laugh".) Objective Vital Signs: Vital Signs - 24 hr 08/28/22 08/28/22 08/28/22 01:00 09:12 15:54 Temperature 36.9 C 36.9 C 37.1 C Heart Rate [ 88 95 82 Brachial] Respiratory 16 18 20 Rate Blood Pressure 118/73 133/74 H 113/74 [Right Brachial artery] O2 Saturation 95 96 95 Oxygen O2 Source Room air I&O (Last 24 Hrs): Intake and Output Totals x24h 08/26/22 08/27/22 08/28/22 23:59 23:59 23:59 Intake Total 4209.333 3374.168 345.833 Balance 4209.333 3374.168 345.833 General: Alert, Oriented x3 HEENT: Atraumatic, Mucous membr. moist/pink Neck: Supple, No JVD Neuro: Alert, Non Focal Cardiovascular: Regular rate, No murmurs Respiratory: No respiratory distress, Breath sounds nml Abdomen: Normal bowel sounds, Soft, No tenderness Extremities: No clubbing, Other (trace pedal edema) - Results Results: Laboratory Results WBC 10.6 x10^3/uL (4.8-10.8) 08/28/22 06:25 RBC 4.34 10^6/uL (4.70-6.10) L 08/28/22 06:25 Hgb 11.8 g/dL (14.0-18.0) L 08/28/22 06:25 Hct 37.1 % (42.0-52.0) L 08/28/22 06:25 MCV 85.5 fL (80.0-94.0) 08/28/22 06:25 MCH 27.2 pg (27.0-31.0) 08/28/22 06:25 MCHC 31.8 g/dL (32.0-36.0) L 08/28/22 06:25 RDW 12.8 % (12.0-15.0) 08/28/22 06:25 Plt Count 277 10^3/uL (130-450) 08/28/22 06:25 MPV 10.0 fL (7.4-11.4) 08/28/22 06:25 Neut # (Auto) 8.0 10^3/uL (1.5-6.6) H 08/28/22 06:25 Lymph # (Auto) 1.5 10^3/uL (1.5-3.5) 08/28/22 06:25 [place] # (Auto) 0.6 10^3/uL (0.0-1.0) 08/28/22 06:25 Eos # (Auto) 0.4 10^3/uL (0.0-0.7) 08/28/22 06:25 Baso # (Auto) 0.0 10^3/uL (0.0-0.1) 08/28/22 06:25 Absolute Nucleated RBC 0.00 x10^3/uL 08/28/22 06:25 Nucleated RBC % 0.0 /100WBC 08/28/22 06:25 Sodium 137 mmol/L (135-145) 08/28/22 06:25 Potassium 3.4 mmol/L (3.5-5.0) L 08/28/22 06:25 Chloride 100 mmol/L (101-111) L 08/28/22 06:25 Carbon Dioxide 27 mmol/L (21-32) 08/28/22 06:25 Anion Gap 10.0 (6-13) 08/28/22 06:25 BUN 10 mg/dL (6-20) 08/28/22 06:25 Creatinine 0.8 mg/dL (0.6-1.2) 08/28/22 06:25 Estimated GFR (MDRD) 108 (>89) 08/28/22 06:25 Glucose 137 mg/dL (70-100) H 08/28/22 06:25 Estimat Average Glucose 140 mg/dL (70-100) H 08/24/22 05:08 Hemoglobin A1c % 6.5 % (4.27-6.07) H 08/24/22 05:08 Calcium 8.7 mg/dL (8.5-10.3) 08/28/22 06:25 Ferritin 172.6 ng/mL (23.9-336.2) 08/24/22 05:08 Total Bilirubin 1.1 mg/dL (0.2-1.0) H 08/27/22 04:51 AST 13 IU/L (10-42) 08/27/22 04:51 ALT 65 IU/L (10-60) H 08/27/22 04:51 Alkaline Phosphatase 74 IU/L (42-121) 08/27/22 04:51 Total Protein 6.8 g/dL (6.7-8.2) 08/27/22 04:51 Albumin 3.2 g/dL (3.2-5.5) 08/27/22 04:51 Globulin 3.6 g/dL (2.1-4.2) 08/27/22 04:51 Albumin/Globulin Ratio 0.9 (1.0-2.2) L 08/27/22 04:51 Ceruloplasmin 19.6 mg/dL (16.0-31.0) 08/23/22 13:17 Triglycerides 401 mg/dL (-149) H 08/24/22 05:08 Cholesterol 176 mg/dL (-199) 08/24/22 05:08 LDL Cholesterol Direct 58 mg/dL (-129) 08/24/22 05:08 LDL Cholesterol, Calc Not Reportable 08/24/22 05:08 VLDL Cholesterol Not Reportable 08/24/22 05:08 HDL Cholesterol 19 mg/dL (60-) L 08/24/22 05:08 LDL/HDL Ratio Not Reportable 08/24/22 05:08 dLDL/HDL Ratio 3.1 (<3.6) 08/24/22 05:08 Cholesterol/HDL Ratio 9.3 (<5.0) 08/24/22 05:08 Lipase 41 U/L (22-51) 08/27/22 04:51 ELSIE Interpretation Comment (.) 08/24/22 08:57 Anti-sm/FILLING MACHINE OPERATOR Abs <0.2 AI (0.0-0.9) 08/24/22 08:57 ENMA-1 Antibody <0.2 AI (0.0-0.9) 08/24/22 08:57 SS-A/Ro Antibody <0.2 AI (0.0-0.9) 08/24/22 08:57 SS-B/La Antibody <0.2 AI (0.0-0.9) 08/24/22 08:57 Sm (Kirk) Antibody <0.2 AI (0.0-0.9) 08/24/22 08:57 FILLING MACHINE OPERATOR Antibody <0.2 AI (0.0-0.9) 08/24/22 08:57 Scl-70 Scleroderma Ab <0.2 AI (0.0-0.9) 08/24/22 08:57 Double Strand DNA Ab <1 IU/mL (0-9) 08/24/22 08:57 Ribosomal P Prot Ab <0.2 AI (0.0-0.9) 08/24/22 08:57 Chromatin Antibody <0.2 AI (0.0-0.9) 08/24/22 08:57 Centromere B Antibody <0.2 AI (0.0-0.9) 08/24/22 08:57 Hepatitis A IgM Ab Negative (Negative) 08/24/22 08:57 Hep Bs Antigen Negative (Negative) 08/24/22 08:57 Hep B Core IgM Ab Negative (Negative) 08/24/22 08:57 Hepatitis C Antibody <0.1 s/co ratio (0.0-0.9) 08/24/22 08:57 Hepatitis C Interp Comment (.) 08/24/22 08:57 SARS-CoV-2 (PCR) NOT DETECTED 08/23/22 16:15
[2022-08-28] MEDS: SODIUM CHLORIDE 0.9% 1,000 ML IV SCH (17:43)
[2022-08-28] MEDS: ZOLPIDEM 5 MG TABLET PO PRN (23:44)
[2022-08-29 05:14] LABS: BASOPHILS # (AUTO) 0.1 10^3/uL (0.0-0.1); BASOPHILS % (AUTO) 0.5 %; EOSINOPHILS # (AUTO) 0.3 10^3/uL (0.0-0.7); EOSINOPHILS % (AUTO) 2.7 %; HCT - HEMATOCRIT 37.4 % (42.0-52.0); HGB - HEMOGLOBIN 11.9 g/dL (14.0-18.0); LYMPHOCYTES # (AUTO) 1.6 10^3/uL (1.5-3.5); LYMPHOCYTES % (AUTO) 15.9 %; MEAN CORPUSCULAR HEMOGLOBIN 27.4 pg (27.0-31.0); MEAN CORPUSCULAR HGB CONC 31.8 g/dL (32.0-36.0); MEAN PLATELET VOLUME 9.7 fL (7.4-11.4); MONOCYTES # (AUTO) 0.5 10^3/uL (0.0-1.0); MONOCYTES % (AUTO) 5.4 %; NEUTROPHILS # (AUTO) 7.5 10^3/uL (1.5-6.6); PLT - PLATELET COUNT 292 10^3/uL (130-450); RED BLOOD COUNT 4.35 10^6/uL (4.70-6.10); RED CELL DISTRIBUTION WIDTH 12.6 % (12.0-15.0); WHITE BLOOD COUNT 10.1 x10^3/uL (4.8-10.8)
[2022-08-29 05:24] LABS: CALCIUM 8.7 mg/dL (8.5-10.3); CREATININE 0.8 mg/dL (0.6-1.2); POTASSIUM 3.3 mmol/L (3.5-5.0)
[2022-08-29] MEDS: PANTOPRAZOLE 40 MG TABLET PO SCH (06:02)
[2022-08-29] MEDS: ENOXAPARIN 40 MG/0.4 ML SYRINGE SUBQ SCH (08:37)
[2022-08-29] MEDS: POTASSIUM CHLOR 10 MEQ/100 ML 10 MEQ/100 ML BAG IV SCH ×3 (08:37→13:37)
[2022-08-29] MEDS: SODIUM CHLORIDE FLUSH 0.9% 10 ML SYRINGE IVP SCH ×3 (08:38→23:44)
--- NOTE | 2022-08-29 16:44 | PROVIDER PROGRESS NOTE ---
Assessment/Plan - Problem List (1) Acute pancreatitis Assessment/Plan: In the differential diagnosis for his acute pancreatitis is most likely hypertriglyceridemia, not gallstones, or alcohol -induced. His history was that of biliary colic after a huge fatty meal superimposed on fatty liver disease. CT of the abdomen, ultrasound, and MRCP did not show stones. He had persistent pain so a repeat CT was done and did not show any worsening disease. The same peripancreatic stranding. No phlegmon, no organizing abscess. Labs have improved. White cell count was slightly elevated, attribute to inflammatory demargination. Triglycerides were 1156 on admission and with fasting Trigl were 401. Yest he is nauseated again, but today no nausea. Abd pain has improved for the past 2 days. He has an appetite Plan: We need to de-escalate his diet back twice to clear liquids for more bowel rest. Advancing diet this time is tolerated by him Will decrease iv fluid rate even further. Possibly discharge tomorrow Pancreatitis type: other Acute pancreatitis complication: no infection or necrosis Qualified Code(s): K85.80 - Other acute pancreatitis without necrosis or infection (2) Hypertriglyceridemia Conclusion/Plan: Most likely familial plus lifestyle, since he is morbidly obese at 5 foot 11 inches tall 117.9 kg. With fasting, his triglycerides have come down tremendously on their own. Plan: We are still adjusting his diet. Will likely order Tricor at discharge Will order Nutrition consult (3) Hyperglycemia A1c came back at 6.4 Plan: Lifestyle change will be needed: to modify his diet not only for his glucose but for his triglycerides and for his fatty liver. Nutrition counseling done by me in the room again today. Will order Nutrition consult I do not think his case warrants checking his sugar before meals and giving him sliding scale insulin at this time. If his fasting glucose is above 150, then we will do so. (4) Cough Improved. He described a cough which he had before admission, it was gone when he was on clear liquids, and recurred when a soft diet was started. Perhaps he is aspirating. A CXR was obtaine yesterday and it showed mild bilateral atelectasis. Pt was reminded to use the IS meter. Perhaps he is having GE reflux, which is most likely. Plan: IV fluid rate to decrease again today. We ordered Protonix before (solid) meals. (5) Abnormal liver enzymes Conclusion/Plan: Improved We considered that his elevated liver enzymes were from fatty liver. But they have improved as this admission has gone on. Repeat CT abd/pelvis continues to show no intraductal or extrahepatic biliary dilatation. Hepatitis work-up for elevated liver enzyme work-up is in process. This is quite a bit of send out labs. Plan: Review labs once available. - Current Meds Current Meds: Current Medications Generic Name Dose Route Start Last Admin Trade Name Freq PRN Reason Stop Dose Admin Enoxaparin Sodium 40 mg 08/25/22 12:00 08/29/22 08:37 Enoxaparin 40 Mg/0.4 Ml Syringe SUBQ 40 mg DAILY EVONNE Administration Hydromorphone HCl 0.5 - 1 mg 08/23/22 20:49 08/28/22 08:26 Hydromorphone 0.5 Mg/0.5 Ml Syringe IVP 0.5 mg Q3H PRN Administration PAIN Sodium Chloride 1,000 mls @ 60 mls/hr 08/28/22 17:16 08/29/22 08:50 Normal Saline 0.9% IV 60 mls/hr .[id number] EVONNE Infusion TKO Ondansetron HCl 4 mg 08/23/22 17:45 08/27/22 21:57 Ondansetron 4 Mg/2 Ml Vial IVP 4 mg Q6HR PRN Administration Nausea / Vomiting Pantoprazole Sodium 40 mg 08/28/22 07:00 08/29/22 06:02 Pantoprazole 40 Mg Tablet PO 40 mg QDAC EVONNE Administration Sodium Chloride 10 ml 08/23/22 17:45 08/27/22 21:56 Sodium Chloride Flush 0.9% 10 Ml Syringe IVP 10 ml PRN PRN Administration NEEDED PER PROVIDER ORDERS Sodium Chloride 10 ml 08/24/22 01:00 08/29/22 08:38 Sodium Chloride Flush 0.9% 10 Ml Syringe IVP Not Given 0100,0900,1700 EVONNE Zolpidem Tartrate 5 mg 08/23/22 22:42 08/28/22 23:44 Zolpidem 5 Mg Tablet PO 5 mg QPM PRN Administration Insomnia - Lab Result Fish Bone Diagrams: 08/29/22 04:50 08/29/22 04:50 - Additional Planning My Orders: My Active Orders 08/28/22 17:16 Sodium Chloride 0.9% [Normal Saline 0.9%] 1,000 ml IV TKO 08/29/22 Lunch DIET [Dysphagia - Puree] [DIET] 08/30/22 05:00 BMP - BASIC METABOLIC PANEL [CHEM] DAILYLAB CBC - COMP BLD CT W/AUTO DIFF [HEME] DAILYLAB Subjective - Subjective Patient Reports: Feeling Better (No more epigastric pain, after pureed breakfast no nausea so far today) Objective Vital Signs: Vital Signs - 24 hr 08/29/22 08/29/22 00:00 08:00 Temperature 36.9 C 36.8 C Heart Rate [ 97 83 Brachial] Respiratory 18 18 Rate Blood Pressure 130/86 H 114/81 H [Right Brachial artery] O2 Saturation 93 95 Oxygen O2 Source Room air I&O (Last 24 Hrs): Intake and Output Totals x24h 08/27/22 08/28/22 08/29/22 23:59 23:59 23:59 Intake Total 3374.168 2207.333 1960 Balance 3374.168 2207.333 1959 General: Alert, Oriented x3 HEENT: Mucous membr. moist/pink Neck: Supple, No JVD Neuro: Alert, Non Focal Cardiovascular: Regular rate, No murmurs Respiratory: No respiratory distress, Breath sounds nml Abdomen: Normal bowel sounds, Soft, No tenderness Extremities: No clubbing, No edema - Results Results: Laboratory Results WBC 10.1 x10^3/uL (4.8-10.8) 08/29/22 04:50 RBC 4.35 10^6/uL (4.70-6.10) L 08/29/22 04:50 Hgb 11.9 g/dL (14.0-18.0) L 08/29/22 04:50 Hct 37.4 % (42.0-52.0) L 08/29/22 04:50 MCV 86.0 fL (80.0-94.0) 08/29/22 04:50 MCH 27.4 pg (27.0-31.0) 08/29/22 04:50 MCHC 31.8 g/dL (32.0-36.0) L 08/29/22 04:50 RDW 12.6 % (12.0-15.0) 08/29/22 04:50 Plt Count 292 10^3/uL (130-450) 08/29/22 04:50 MPV 9.7 fL (7.4-11.4) 08/29/22 04:50 Neut # (Auto) 7.5 10^3/uL (1.5-6.6) H 08/29/22 04:50 Lymph # (Auto) 1.6 10^3/uL (1.5-3.5) 08/29/22 04:50 [place] # (Auto) 0.5 10^3/uL (0.0-1.0) 08/29/22 04:50 Eos # (Auto) 0.3 10^3/uL (0.0-0.7) 08/29/22 04:50 Baso # (Auto) 0.1 10^3/uL (0.0-0.1) 08/29/22 04:50 Absolute Nucleated RBC 0.00 x10^3/uL 08/29/22 04:50 Nucleated RBC % 0.0 /100WBC 08/29/22 04:50 Sodium 135 mmol/L (135-145) 08/29/22 04:50 Potassium 3.3 mmol/L (3.5-5.0) L 08/29/22 04:50 Chloride 98 mmol/L (101-111) L 08/29/22 04:50 Carbon Dioxide 24 mmol/L (21-32) 08/29/22 04:50 Anion Gap 13.0 (6-13) 08/29/22 04:50 BUN 11 mg/dL (6-20) 08/29/22 04:50 Creatinine 0.8 mg/dL (0.6-1.2) 08/29/22 04:50 Estimated GFR (MDRD) 108 (>89) 08/29/22 04:50 Glucose 142 mg/dL (70-100) H 08/29/22 04:50 Estimat Average Glucose 140 mg/dL (70-100) H 08/24/22 05:08 Hemoglobin A1c % 6.5 % (4.27-6.07) H 08/24/22 05:08 Calcium 8.7 mg/dL (8.5-10.3) 08/29/22 04:50 Magnesium 2.1 mg/dL (1.7-2.8) 08/29/22 04:50 Ferritin 172.6 ng/mL (23.9-336.2) 08/24/22 05:08 Total Bilirubin 1.1 mg/dL (0.2-1.0) H 08/27/22 04:51 AST 13 IU/L (10-42) 08/27/22 04:51 ALT 65 IU/L (10-60) H 08/27/22 04:51 Alkaline Phosphatase 74 IU/L (42-121) 08/27/22 04:51 Total Protein 6.8 g/dL (6.7-8.2) 08/27/22 04:51 Albumin 3.2 g/dL (3.2-5.5) 08/27/22 04:51 Globulin 3.6 g/dL (2.1-4.2) 08/27/22 04:51 Albumin/Globulin Ratio 0.9 (1.0-2.2) L 08/27/22 04:51 Ceruloplasmin 19.6 mg/dL (16.0-31.0) 08/23/22 13:17 Triglycerides 401 mg/dL (-149) H 08/24/22 05:08 Cholesterol 176 mg/dL (-199) 08/24/22 05:08 LDL Cholesterol Direct 58 mg/dL (-129) 08/24/22 05:08 LDL Cholesterol, Calc Not Reportable 08/24/22 05:08 VLDL Cholesterol Not Reportable 08/24/22 05:08 HDL Cholesterol 19 mg/dL (60-) L 08/24/22 05:08 LDL/HDL Ratio Not Reportable 08/24/22 05:08 dLDL/HDL Ratio 3.1 (<3.6) 08/24/22 05:08 Cholesterol/HDL Ratio 9.3 (<5.0) 08/24/22 05:08 Lipase 41 U/L (22-51) 08/27/22 04:51 ELSIE Interpretation Comment (.) 08/24/22 08:57 Anti-sm/FLAT MACHINE CUTTER Abs <0.2 AI (0.0-0.9) 08/24/22 08:57 ENMA-1 Antibody <0.2 AI (0.0-0.9) 08/24/22 08:57 SS-A/Ro Antibody <0.2 AI (0.0-0.9) 08/24/22 08:57 SS-B/La Antibody <0.2 AI (0.0-0.9) 08/24/22 08:57 Sm (Kirk) Antibody <0.2 AI (0.0-0.9) 08/24/22 08:57 FLAT MACHINE CUTTER Antibody <0.2 AI (0.0-0.9) 08/24/22 08:57 Scl-70 Scleroderma Ab <0.2 AI (0.0-0.9) 08/24/22 08:57 Double Strand DNA Ab <1 IU/mL (0-9) 08/24/22 08:57 Ribosomal P Prot Ab <0.2 AI (0.0-0.9) 08/24/22 08:57 Chromatin Antibody <0.2 AI (0.0-0.9) 08/24/22 08:57 Centromere B Antibody <0.2 AI (0.0-0.9) 08/24/22 08:57 Hepatitis A IgM Ab Negative (Negative) 08/24/22 08:57 Hep Bs Antigen Negative (Negative) 08/24/22 08:57 Hep B Core IgM Ab Negative (Negative) 08/24/22 08:57 Hepatitis C Antibody <0.1 s/co ratio (0.0-0.9) 08/24/22 08:57 Hepatitis C Interp Comment (.) 08/24/22 08:57 SARS-CoV-2 (PCR) NOT DETECTED 08/23/22 16:15
[2022-08-29] MEDS: SODIUM CHLORIDE 0.9% 1,000 ML IV SCH (20:05)
[2022-08-29] MEDS: ZOLPIDEM 5 MG TABLET PO PRN (23:44)
[2022-08-30] MEDS: PANTOPRAZOLE 40 MG TABLET PO SCH (04:56)
[2022-08-30 05:16] LABS: BASOPHILS # (AUTO) 0.1 10^3/uL (0.0-0.1); BASOPHILS % (AUTO) 0.7 %; EOSINOPHILS # (AUTO) 0.3 10^3/uL (0.0-0.7); EOSINOPHILS % (AUTO) 2.9 %; HCT - HEMATOCRIT 39.1 % (42.0-52.0); HGB - HEMOGLOBIN 12.5 g/dL (14.0-18.0); LYMPHOCYTES # (AUTO) 1.9 10^3/uL (1.5-3.5); LYMPHOCYTES % (AUTO) 19.9 %; MEAN CORPUSCULAR HEMOGLOBIN 27.1 pg (27.0-31.0); MEAN CORPUSCULAR VOLUME 84.6 fL (80.0-94.0); MEAN PLATELET VOLUME 9.7 fL (7.4-11.4); MONOCYTES # (AUTO) 0.6 10^3/uL (0.0-1.0); MONOCYTES % (AUTO) 6.2 %; NEUTROPHILS # (AUTO) 6.5 10^3/uL (1.5-6.6); NEUTROPHILS % (AUTO) 67.5 %; PLT - PLATELET COUNT 328 10^3/uL (130-450); RED BLOOD COUNT 4.62 10^6/uL (4.70-6.10); RED CELL DISTRIBUTION WIDTH 12.5 % (12.0-15.0); WHITE BLOOD COUNT 9.6 x10^3/uL (4.8-10.8)
[2022-08-30 05:23] LABS: CREATININE 0.8 mg/dL (0.6-1.2); POTASSIUM 3.7 mmol/L (3.5-5.0)
[2022-08-30] MEDS: SODIUM CHLORIDE FLUSH 0.9% 10 ML SYRINGE IVP SCH (08:06)
[2022-08-30 08:09] LABS: LIVER-KIDNEY MICROSOMAL AB 0.9 Units (0.0-20.0)
[2022-08-30 08:10] VITALS: BP 123/78
[2022-08-30] MEDS ORDERED: FENOFIBRATE 48 MG TABLET PO SCH (09:00)
[2022-08-30 10:08] LABS: ACTIN (SMOOTH MUSCLE) ANTIBODY 3 Units (0-19)
--- NOTE | 2022-08-30 11:09 | Discharge Plan ---
Discharge Plan Problem Reviewed?: Yes Disposition: Home, Self Care Condition: Stable Diet: Soft Activity Restrictions: Activity as Tolerated Shower Restrictions: No Driving Restrictions: No Instruction Topics: Pancreatitis Health Concerns: You were hospitalized for treating acute pancreatitis caused by high Triglyceride levels (fat). We also found you to have high sugar levels. Please stay well-hydrated and slowly advance your diet from easily digestible food to a low-fat but solid diet. You should see your primary care provider in 1 to 2 weeks for a hospital follow- up visit or if you have recurrence of any of your symptoms. Stay off of alcohol which can irritate your pancreas. Please eat a much stricter low-fat diet to keep the triglyceride levels down, or you will need to be started on a medicine like Tricor, for high Triglycerides. Please stick to a low sugar and low carbohydrate diet, or you will need to get treatment for diabetes. Plan of Treatment: As above. Care Goals: Improvement in symptoms and stabilization are the goals. Assessment: The patient understands and is agreeable with the plan. Additional Instructions or Follow Up instructions: If you have new or worsening symptoms, call your PCP for advice, or come to the ER. No Smoking: If you smoke, Please STOP! Call for help. Follow-up with: Laquita Kaufman PA-C [Primary Care Provider] -
[2022-08-30] MEDS: ENOXAPARIN 40 MG/0.4 ML SYRINGE SUBQ SCH (11:21)
--- NOTE | 2022-08-30 11:47 | DISCHARGE SUMMARY ---
Discharge Summary Admit Date: 08/23/22 Discharge Date: 08/30/22 Discharging Provider: Dr Alva Navarro Primary Care Provider: Dr Laquita Kaufman Code Status: Attempt Resuscitation Condition at Discharge: Stable Discharge Disposition: 01 Home, Self Care - HPI History of Present Illness: This is a 41 y/o male of [place] and [place] ancestry. He started having RUQ pain a couple of days ago and thought it was indigestion. Pain initially was epigastric, and then it started going into the right upper quadrant. It had started in the morning after eating a [employer] breakfast. He thought at first it was just a touch of indigestion. A friend was visiting from [facility] and they were being indiscrete by eating "bad food". Later on that evening, that same friend made a meal of a wagyu steak that was probably the fattiest thing he had ever eaten. Also accompanied by fois grois. The pain really intensified after that meal and he was miserable to the point that he felt like he was going to . He said this was the worst pain he has ever had in his life. Non r adiating. Located in the epigastrium and right upper quadrant. It did not radiate to the back. After a while the feeling that he was going to explode slowly abated, but he then began feeling left upper quadrant discomfort. And now he feels discomfort in the left mid abdomen. No fever, no chills. No hx of alcohol abuse, no hx of cholesterol problems, no hx of galbladder problems. He was able to find some lab work for me from 2018. At that point his triglycerides were in the low 200s. Many years ago he had a girlfriend that was a recovering alcoholic. And in order to support her he decided not to drink anymore. He said he has not had a drink in over 6 years. He was so miserable that he got himself to the walk-in clinic in [place]. From there they called an ambulance and brought him to our emergency room. His temp was 36.7, HR 89, 120/85, resp 16, with 98% room air sats. Exam was b enign except for epigastric, RUQ pain to palpation w nml bowel sounds. Labs show AST 293, ALT 457, alk phos 131. TG are 1156, chold 285, lipase >4800. Glucose is 219 and he has no hx of DM. Ultrasound showed diffuse hepatic steatosis. No evidence of gallstone disease. Abdomen pelvis CT had clear lung bases. Hepatomegaly, moderate hepatic steatosis, and gallbladder had a tiny stone in its dependent portion. No gallbladder wall thickening or pericholecystic fluid seen. Spleen was normal. Biliary system was not dilated. Pancreas was large in size with extensive peripancreatic fat stranding. No discrete pancreatic mass noted. No peripancreatic fluid collection noted. The case was discussed with emergency room provider. We went over the differential diagnosis of what causes pancreatitis. We have already gone over the fact that he has no history of alcohol abuse, no history of gallstones. He does appear to have hyperlipidemia. ER provider is asking the patient be admitted for treating pancreatitis. - HOSPITAL COURSE Hospital Course: (1) Acute pancreatitis K85.80 Cause was most likely hypertriglyceridemia, not gallstones, or alcohol -induced. Triglycerides were 1156 on admission and with fasting, his Trigl were 401. He required IV antiemetics and IV narcotics. He was put on bowel rest then on clear liquids, then diet was attempted to be advanced 3 times, when finally he had no nausea or pain and was discharged home and advised to eat a bland diet, stay well hydrated and advance his diet as tolerated. (2) Hypertriglyceridemia Most likely familial plus lifestyle, since he is obese, with BMI 37. With fasting, his triglycerides have came down tremendously from >1000 to 40. He did not want to start Tricor at discharge, wanted to try several months of a low-fat diet. (3) Hyperglycemia A1c came back at 6.4. He was seen by the Outdoor Studies Director. Lifestyle change will be needed: to modify his diet not only for his glucose but for his triglycerides a nd for his fatty liver. (4) Cough He described a cough which he had before admission, it was gone when he was on clear liquids, and recurred when a soft diet was started. A CXR was obtained and it showed mild bilateral atelectasis, and Incentive Spirometry was ordered, sinc e he had abd pain with deep breaths. His cough was likely from having GE reflux. He was started on ant-acids before meals and this could be considered to be continued as an outpatient. (5) Abnormal liver enzymes LFTs improved as the admission went on. CT abd/pelvis showed no intraductal or extrahepatic biliary dilatation. Hepatitis work-up was sent and results pending. - ALLERGIES Allergies/Adverse Reactions: Allergies Allergy/AdvReac Type Severity Reaction Status Date / Time Penicillins Allergy Unknown Verified 08/23/22 11:59 montelukast AdvReac Hallucinati Verified 08/24/22 15:04 ons - MEDICATIONS Home Medications: Ambulatory Orders Medication Instructions Recorded Confirmed No Known Home Medications 08/24/22 08/24/22 - PHYSICAL EXAM AT DISCHARGE General Appearance: positive: No acute distress, Alert Eyes Bilateral: positive: Normal inspection, EOMI ENT: positive: ENT inspection nml, No signs of dehydration Neck: positive: Nml inspection, No JVD Respiratory: positive: No respiratory distress, Breath sounds nml Cardiovascular: positive: Regular rate & rhythm, No murmur Abdomen: positive: Non-tender, Nml bowel sounds, No distention Skin: positive: Warm, Dry Extremities: positive: Non-tender, No pedal edema Neurologic/Psychiatric: positive: Oriented x3, Motor nml - LABS Result Diagrams: 08/30/22 04:55 08/30/22 04:55 - DIAGNOSTIC IMAGING Diagnostic Imaging Results: Final report reviewed - FOLLOW UP Follow Up: See PCP in 1-2 weeks for a hospital F/U visit.
== END 2022-08-30 11:43 | disposition home or self-care (01) | DRG 439 ==
LOC: EDUNIT# → ED 11:36 → MS2 17:45
PROVIDERS: ADMIT Specialist; ATTEND Internal Medicine
DX: K85.80 Other acute pancreatitis without necrosis or infection (principal); J98.11 Atelectasis; K21.9 Gastro-esophageal reflux disease without esophagitis; K76.0 Fatty (change of) liver, not elsewhere classified; E66.01 Morbid (severe) obesity due to excess calories; E78.1 Pure hyperglyceridemia; H54.7 Unspecified visual loss; R00.0 Tachycardia, unspecified; R73.9 Hyperglycemia, unspecified; R74.01 Elevation of levels of liver transaminase levels; Z20.822 Contact with and (suspected) exposure to COVID-19; Z68.37 Body mass index [BMI] 37.0-37.9, adult; Z83.3 Family history of diabetes mellitus
CPT/HCPCS: 36415; 71045; 74176; 74177; 74183; 76705; 80048; 80053; 80061; 82390; 82728; 83036; 83516; 83690; 83721; 83735; 85025; 86015; 86225; 86235; 86376; 86705; 86709; 86803; 87340; 87635; 93005; 96361; 96374; 96375; 99284; 99285; A9270; A9585; J1170; J1650; Q9967

== ENCOUNTER 2022-09-28 10:38 | Outpatient (CLI) | payer OTHER ==
[2022-09-28 14:32] LABS: ALBUMIN/GLOBULIN RATIO 1.6 (1.0-2.2); ALKALINE PHOSPHATASE 84 IU/L (42-121); ALT ALANINE AMINOTRANSFERASE 31 IU/L (10-60); AST ASPARTATE AMINOTRANSFERASE 25 IU/L (10-42); BILIRUBIN,TOTAL 1.5 mg/dL (0.2-1.0); BUN - BLOOD UREA NITROGEN 12 mg/dL (6-20); CALCIUM 9.5 mg/dL (8.5-10.3); CARBON DIOXIDE - CO2 27 mmol/L (21-32); CHLORIDE 95 mmol/L (101-111); CHOL/HDL RATIO 6.6 (<5.0); CHOLESTEROL 165 mg/dL; CREATININE 0.8 mg/dL (0.6-1.2); GFR - MDRD 108 (>89); GLUCOSE 80 mg/dL (70-100); HDL CHOLESTEROL 25 mg/dL; LDL CHOLESTEROL,CALCULATED 102 mg/dL; LDL/HDL RATIO 4.1 (<3.6); POTASSIUM 4.7 mmol/L (3.5-5.0); SODIUM 134 mmol/L (135-145); TOTAL PROTEIN 8.1 g/dL (6.7-8.2); TRIGLYCERIDES 189 mg/dL; VLDL CHOLESTEROL 38 mg/dL
[2022-09-28 20:19] LABS: ESTIMATED AVERAGE GLUCOSE 114 mg/dL (70-100); HEMOGLOBIN A1c% 5.6 % (4.27-6.07)
== END 2022-09-28 10:39 | disposition home or self-care (01) ==
LOC: LAB.S 10:38
PROVIDERS: ATTEND Registered Nurse
DX: Z87.19 Personal history of other diseases of the digestive system (principal); E66.9 Obesity, unspecified
CPT/HCPCS: 36415; 80053; 80061; 83036; 83721